=== PATIENT | female | born 1990 | race Caucasian/White ===

== ENCOUNTER → 2020-08-19 15:44 | Outpatient (BNVA) | payer OTHER, SELFPAY | PROVIDERS: PCP Internal Medicine; Visit Provider Obstetrics & Gynecology | DX: Z76.89 Persons encountering health services in other specified circumstances (principal) ==

== ENCOUNTER 2020-08-28 11:48 | Outpatient (REF) | payer OTHER, SELFPAY ==
[2020-08-28 12:24] LABS: COVID-19 Test Negative (Negative)
== END 2020-08-28 11:49 | disposition home or self-care (01) ==
LOC: HO.LAB 11:48
PROVIDERS: Visit Provider Internal Medicine
DX: Z20.828 Contact with and (suspected) exposure to other viral communicable diseases (principal)
CPT/HCPCS: 87635

== ENCOUNTER 2020-09-01 11:06 | Outpatient (REF) | payer OTHER, SELFPAY ==
[2020-09-01 11:27] LABS: COVID-19 Test Negative (Negative)
== END 2020-09-01 11:07 | disposition home or self-care (01) ==
LOC: HO.LAB 11:06
PROVIDERS: Visit Provider Internal Medicine
DX: Z20.828 Contact with and (suspected) exposure to other viral communicable diseases (principal)
CPT/HCPCS: 87635

== ENCOUNTER 2020-09-11 13:05 | Outpatient (REF) | payer OTHER, SELFPAY ==
[2020-09-17 15:27] LABS: HPV mRNA E6/E7 rflx Not Detected (Not Detected)
== END 2020-09-11 13:06 | disposition home or self-care (01) ==
LOC: HO.LAB 13:05
PROVIDERS: PCP Internal Medicine; Referring Provider Internal Medicine; Visit Provider Advanced Practice Midwife
DX: Z01.419 Encounter for gynecological examination (general) (routine) without abnormal findings (principal); B97.7 Papillomavirus as the cause of diseases classified elsewhere; Z79.899 Other long term (current) drug therapy
CPT/HCPCS: 87624; 87625; 88142

== ENCOUNTER 2020-11-24 15:27 | Outpatient (REF) | payer OTHER, SELFPAY ==
[2020-11-24 15:51] LABS: COVID-19 Test Negative (Negative); IDNOW Serial# 55D5AD1C
== END 2020-11-24 15:28 | disposition home or self-care (01) ==
LOC: HO.LAB 15:27
PROVIDERS: Visit Provider Internal Medicine
DX: Z20.822 Contact with and (suspected) exposure to COVID-19 (principal)
CPT/HCPCS: 36415; 87635; C9803

== ENCOUNTER 2021-09-12 13:31 | Outpatient (REF) | payer OTHER, SELFPAY ==
[2021-09-12 14:06] LABS: COVID-19 Test Negative (Negative)
== END 2021-09-12 13:32 | disposition home or self-care (01) ==
LOC: HO.LAB 13:31
PROVIDERS: PCP Internal Medicine; Visit Provider Internal Medicine
DX: Z20.822 Contact with and (suspected) exposure to COVID-19 (principal)
CPT/HCPCS: 36415; 87635

== ENCOUNTER 2021-09-28 | Outpatient (REF) | payer OTHER, SELFPAY | END 2021-09-28 00:01 | disposition home or self-care (01) | LOC: HO.LNP | PROVIDERS: Visit Provider Physician Assistant | DX: J32.9 Chronic sinusitis, unspecified (principal); Z20.822 Contact with and (suspected) exposure to COVID-19 | CPT/HCPCS: U0003; U0005 ==

== ENCOUNTER 2021-09-29 11:28 | Outpatient (REF) | payer OTHER, SELFPAY | END 2021-09-29 11:29 | disposition home or self-care (01) | LOC: HO.LNP 11:28 | PROVIDERS: Visit Provider Physician Assistant | DX: Z13.89 Encounter for screening for other disorder (principal) ==

== ENCOUNTER 2021-10-19 13:09 | Outpatient (REF) | payer OTHER, SELFPAY ==
--- NOTE | ~2021-10-19 | XR_ITS ---
EXAMINATION: XR SHOULDER, RIGHT CLINICAL INFORMATION: Right shoulder pain COMPARISON: None TECHNIQUE: Three views of the right shoulder. FINDINGS: The bones and soft tissues are normal. No fracture. Glenohumeral and acromioclavicular alignment is anatomic with normal joint space. No abnormal soft tissue calcifications. XR/XR shoulder RT min 2V IMPRESSION: No significant bony abnormality of the right shoulder identified.
== END 2021-10-19 13:10 | disposition home or self-care (01) ==
LOC: HO.HOSX 13:09
PROVIDERS: Visit Provider Physician Assistant
DX: S43.001A Unspecified subluxation of right shoulder joint, initial encounter (principal)
CPT/HCPCS: 20610; 73030; J1040

== ENCOUNTER 2022-08-30 14:25 | Outpatient (REF) | payer OTHER, SELFPAY ==
[2022-08-30 15:15] LABS: Hematocrit 38.7 % (37.0-47.0); Hemoglobin 12.8 g/dl (12.0-16.0); Mean Corpuscular HGB Conc 33.1 g/dl (31.0-35.0); Mean Corpuscular Hemoglobin 31.4 pg (27.0-33.0); Mean Corpuscular Volume 95.1 fL (80.0-98.0); Mean Platelet Volume 10.1 fL (9.4-12.3); Platelet Count 359 X10*3/uL (160-400); Red Blood Count 4.07 X10*6/uL (4.20-5.50)
[2022-08-30 15:55] LABS: Anion Gap 14 (12-20); Aspartate Amino Transferase 22 U/L (5-31); Bilirubin Total 0.4 mg/dL (0.0-1.0); Calcium 9.5 mg/dL (8.4-10.2); Carbon Dioxide 23 mmol/L (22-29); Chloride 106 mmol/L (96-108); Cholesterol 181 mg/dL; Potassium 4.6 mmol/L (3.3-5.1); Sodium 138 mmol/L (135-145); Total Protein 6.8 g/dL (6.5-8.0); Triglycerides 62 mg/dL
[2022-08-30 16:04] LABS: Alanine Aminotransferase 19 U/L (0-31); Albumin Level 4.4 g/dL (3.5-5.0); Alkaline Phosphatase 58 U/L (39-117); Blood Urea Nitrogen 16 mg/dL (9-16); Estimated Glomerular Filt Rate > 60; Glucose Fasting 95 mg/dL (60-99); HDL Cholesterol 64 mg/dL; LDL Cholesterol Calculated 105 mg/dl
[2022-08-30 16:08] LABS: TSH reflex Free T4 1.74 uIU/mL (0.32-4.0)
[2022-08-30 16:13] LABS: Folate > 20.0 ng/mL (> or = 4.0); Vitamin B12 489 pg/mL (200-900)
[2022-09-03 16:26] LABS: Vitamin D 25-OH, D2 <4 ng/mL; Vitamin D 25-OH, D3 44 ng/mL; Vitamin D 25-OH, Total 44 ng/mL (30-100)
== END 2022-08-30 14:26 | disposition home or self-care (01) ==
LOC: HO.LAB 14:25
PROVIDERS: PCP Internal Medicine; Visit Provider Nurse Practitioner Family
DX: Z13.220 Encounter for screening for lipoid disorders (principal); Z13.29 Encounter for screening for other suspected endocrine disorder; J45.909 Unspecified asthma, uncomplicated
CPT/HCPCS: 36415; 80053; 80061; 82306; 82607; 82746; 84443; 85027

== ENCOUNTER 2023-06-28 09:48 | Outpatient (REF) | payer OTHER, SELFPAY ==
[2023-06-28 10:10] LABS: MANUAL DIFF FLAG NO
[2023-06-28 10:43] LABS: Basophils Percent Auto 0.3 % (0-2); Eosinophils Absolute Auto 0.1 X10*3/uL (0.0-0.4); Eosinophils Percent Auto 0.8 % (0-4); Hematocrit 39.8 % (37.0-47.0); Imm Gran Abs Auto 0.06 X10*3/uL (0.00-0.03); Imm Gran Pct Auto 0.7 % (0.0-0.4); Lymphocytes Absolute Auto 2.6 X10*3/uL (1.2-4.9); Lymphocytes Percent Auto 30.1 % (20-40); Mean Corpuscular HGB Conc 32.7 g/dl (31.0-35.0); Mean Corpuscular Hemoglobin 31.2 pg (27.0-33.0); Mean Corpuscular Volume 95.4 fL (80.0-98.0); Mean Platelet Volume 10.1 fL (9.4-12.3); Monocytes Absolute Auto 0.6 X10*3/uL (0.1-1.2); Neutrophils Absolute Auto 5.3 x10*3/uL (2.0-8.3); Neutrophils Percent Auto 61.1 % (45-73); Platelet Count 313 X10*3/uL (160-400); Red Blood Count 4.17 X10*6/uL (4.20-5.50); White Blood Count 8.7 X10*3/uL (4.8-10.8)
[2023-06-28 11:29] LABS: Alanine Aminotransferase 12 U/L (0-31); Albumin Level 4.3 g/dL (3.5-5.0); Alkaline Phosphatase 48 U/L (39-117); Anion Gap 10 (12-20); Aspartate Amino Transferase 18 U/L (5-31); Bilirubin Total 0.4 mg/dL (0.0-1.0); Blood Urea Nitrogen 16 mg/dL (9-16); Calcium 9.6 mg/dL (8.4-10.2); Carbon Dioxide 24 mmol/L (22-29); Chloride 108 mmol/L (96-108); Estimated Glomerular Filt Rate > 60; Glucose Random 84 mg/dL (60-115); Potassium 4.4 mmol/L (3.3-5.1); Sodium 138 mmol/L (135-145); Total Protein 7.2 g/dL (6.5-8.0)
[2023-06-28 11:37] LABS: HIV AB/AG Nonreactive (Nonreactive); HIV Num 1 0.05 S/CO (0.00-0.99)
[2023-06-28 11:47] LABS: Free T4 (Free Thyroxine) 0.85 ng/dL (0.71-1.85)
[2023-06-30 20:34] LABS: TS Negative Control Passed; TS Panel A 2; TS Panel B 8; TS Positive Control Passed; TSpotTB Positive (Negative)
== END 2023-06-28 09:49 | disposition home or self-care (01) ==
LOC: HO.LAB 09:48
PROVIDERS: PCP Internal Medicine; Visit Provider Physician Assistant Medical
DX: L71.8 Other rosacea (principal); R61 Generalized hyperhidrosis
CPT/HCPCS: 36415; 80053; 84439; 85025; 86481; 87389

== ENCOUNTER 2023-07-01 16:12 | Outpatient (REF) | payer OTHER, SELFPAY ==
--- NOTE | ~2023-07-01 | XR_ITS ---
EXAMINATION: XR CHEST CLINICAL INFORMATION: Nonspecific reaction to tuberculin skin test. COMPARISON: None available. TECHNIQUE: 2 views of the chest were obtained. FINDINGS: The cardiomediastinal silhouette is normal. There is no focal lung consolidation or pleural effusion. The bony structures and soft tissues are unremarkable. XR/XR chest 2V IMPRESSION: No active cardiopulmonary disease.
== END 2023-07-01 16:13 | disposition home or self-care (01) ==
LOC: HO.XRAY 16:12
PROVIDERS: PCP Internal Medicine; Visit Provider Internal Medicine
DX: R76.11 Nonspecific reaction to tuberculin skin test without active tuberculosis (principal)
CPT/HCPCS: 71046

== ENCOUNTER 2023-07-14 07:52 | Outpatient (AMB) | payer OTHER, SELFPAY ==
--- NOTE | 2023-07-14 07:58 | MHC.OFFVIS ---
Intake Vital Signs 07/14/23 08:00 Height 5 ft 3 in Weight 171 lb 15.369 oz BMI 30.5 BP 98/60 Intake Visit Reasons: Painful intercourse Career Development Specialist Required: No Information Interpreted: non-clinical & clinical Operations Analyst: Operations Analyst Present (Berenice REED) Accompanied by: Self / Same As Patient Allergies cyclobenzaprine [From Flexeril] Allergy (Mild, Verified 07/14/23 08:01) Stomach Upset Is last menstrual period known: Yes Last menstrual period: 07/05/23 HPI HPI Comments History of Present Illness Details Presenting complaining of many years history of superficial external pain during intercourse associated with lack of lubrication after initiation of sexual active. No vulvodynia, no vaginal discharge , no vulvar burning or itching PFSH Medical History (Updated 07/14/23 @ 08:26 by Shaheen Avila MD) Intermittent palpitations Overweight (BMI 25.0-29.9) Rosacea Allergic rhinitis Asthma Seasonal allergies ADHD HPV in female Insomnia Depression Psoriasis Surgical History History of wisdom tooth extraction Family History Mother Lung cancer Cervical cancer Father Prostate cancer Paternal Grandmother Lung cancer Social History Housing: House Alcohol intake: current Alcohol intake frequency: a few times a week Patient Tobacco Use Status: Never used Tobacco e-Cigarette/Vaping Use: Never Used Second Hand Smoke Exposure: No service: No Current occupational status: employed 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 Sexual orientation: Bisexual Gender identity: Female Cognitive needs: No Hearing needs: No Vision needs: Yes (glasses) Female Reproductive History Menstrual Age of Menarche: 10 Date of last menstrual period: 07/05/23 Review of Systems Const All systems reviewed & are unremarkable except as noted in HPI and below Physical Exam General: Yes no CVA tenderness External Female Exam: normal external appearance and normal appearance of the urethra Speculum Exam - Vagina: normal appearance of the vagina, normal palpation, no lesions and no masses Speculum Exam - Cervix: normal appearance of the cervix, normal palpation, no lesions, no masses and nontender Bimanual exam- vagina & uterus: normal bimanual exam, normal palpation, uterine size normal, normal palpation, uterine shape normal, No Cervical tenderness present and non-tender Bimanual Exam- Adnexa, other: normal adnexae Back/Spine/Pelvis Back: no CVA tenderness Assessment & Plan Assessment & Plan (1) Dyspareunia, female: Code(s): N94.10 - Unspecified dyspareunia Plan: GC/CT, BV panel collected. Discussed with patient possible causes of dyspareunia including cervical/vulvar infection, vulvar skin disorders which has been ruled out given the normal pelvic exam, psychological causes and others. Will refer to sexual dysfunction clinic. All questions answered, the patient verbalized understanding and agreed with the plan. Coding Level of Care Code Est Pt Level 3 (98427) Diagnoses Dyspareunia, female N94.10
[2023-07-14 08:00] VITALS: BP 98/60; BMI 30.5
== END 2023-07-14 08:26 | disposition home or self-care (01) ==
PROVIDERS: PCP Internal Medicine; Visit Provider Obstetrics & Gynecology
DX: N94.10 Unspecified dyspareunia (principal)
CPT/HCPCS: 99213

== ENCOUNTER 2023-07-14 07:52 | Outpatient (REF) | payer OTHER, SELFPAY ==
[2023-07-15 03:20] LABS: CT PCR NOT DETECTED (Not Detect.); NG PCR NOT DETECTED (Not Detect.)
[2023-07-15 16:02] LABS: BV Int Neg Control Negative (Negative); BV Int Pos Control Positive (Positive)
== END 2023-07-14 07:53 | disposition home or self-care (01) ==
LOC: HO.LNP 07:52
PROVIDERS: PCP Internal Medicine; Visit Provider Obstetrics & Gynecology
DX: N94.10 Unspecified dyspareunia (principal); Z20.2 Contact with and (suspected) exposure to infections with a predominantly sexual mode of transmission
CPT/HCPCS: 0353U; 87480; 87510; 87660

== ENCOUNTER 2023-07-27 11:31 | Outpatient (AMB) | payer OTHER, SELFPAY ==
[2023-07-27 11:41] VITALS: BP 120/62; PULSE 74; BMI 27.8
--- NOTE | 2023-07-27 11:41 | A.OFFVIS_ITS ---
Intake Vital Signs 07/27/23 11:41 Height 5 ft 3 in Weight 157 lb BMI 27.8 BP 120/62 Pulse 74 Intake Visit Reasons: ref[facility], skin test without active tuberculosis Allergies cyclobenzaprine [From Flexeril] Allergy (Mild, Verified 07/27/23 11:49) Stomach Upset HPI ref.[facility], skin test without active tuberculosis HPI Details She had TB skin test done due to rashes on skin and was found to be positive by [employer]. She says she was HIV negative. She has negative CXR and no cough or fevers. [facility] Medical History Intermittent palpitations Overweight (BMI 25.0-29.9) Rosacea Allergic rhinitis Asthma Seasonal allergies ADHD HPV in female Insomnia Depression Psoriasis Surgical History History of wisdom tooth extraction Family History Mother Lung cancer Cervical cancer Father Prostate cancer Paternal Grandmother Lung cancer Social History Housing: House Alcohol intake: current Alcohol intake frequency: a few times a week Patient Tobacco Use Status: Never used Tobacco e-Cigarette/Vaping Use: Never Used Second Hand Smoke Exposure: No service: No Current occupational status: employed 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 Code(s): R76.11 - Nonspecific reaction to tuberculin skin test without active tuberculosis Plan: Would recheck T spot. If positive six months INH and B6. (2) Rosacea: Code(s): L71.9 - Rosacea, unspecified Orders: Orders T Spot TB 07/27/23 R76.11 - Nonspecific reaction to tuberculin skin test without active tuberculosis Hepatitis C Antibody 07/27/23 R76.11 - Nonspecific reaction to tuberculin skin test without active tuberculosis HIV Ab/Ag 07/27/23 R76.11 - Nonspecific reaction to tuberculin skin test without active tuberculosis Coding Level of Care Code New Pt Level 3 (87997) Diagnoses Positive TB test R76.11 Carmen L71.9
== END 2023-07-27 11:53 | disposition home or self-care (01) ==
PROVIDERS: PCP Internal Medicine; Visit Provider Internal Medicine
DX: R76.11 Nonspecific reaction to tuberculin skin test without active tuberculosis (principal); L71.9 Rosacea, unspecified
CPT/HCPCS: 99203

== ENCOUNTER → 2023-07-27 11:31 | Outpatient (BNVA) | payer OTHER, SELFPAY | PROVIDERS: PCP Internal Medicine; Visit Provider Internal Medicine ==

== ENCOUNTER 2024-01-13 11:33 | Outpatient (AMB) | payer OTHER, SELFPAY ==
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
== END 2024-01-13 12:00 | disposition home or self-care (01) ==
LOC: HO.HOP 11:33
PROVIDERS: PCP Internal Medicine; Visit Provider Clinical Nurse Specialist Psychiatric/Mental Health
DX: F31.81 Bipolar II disorder (principal); F43.21 Adjustment disorder with depressed mood; F90.9 Attention-deficit hyperactivity disorder, unspecified type
CPT/HCPCS: 99214

== ENCOUNTER → 2024-01-13 11:33 | Outpatient (BNVA) | payer OTHER, SELFPAY | PROVIDERS: PCP Internal Medicine; Visit Provider Clinical Nurse Specialist Psychiatric/Mental Health ==

== ENCOUNTER 2024-01-20 12:56 | Outpatient (AMB) | payer OTHER, SELFPAY ==
--- NOTE | 2024-01-20 13:00 | A.OFFPC_ITS ---
Vital Signs 01/20/24 13:03 Height 5 ft 3 in Weight 136 lb 6 oz BMI 24.2 BP 132/70 Blood Pressure Location Lt brachial Position Sitting Pulse 72 Pulse Source Pulse Oximeter Pulse Oximetry (%) 100 Oxygen Delivery Method Room Air Intake Visit Reasons: Physical Exam Intake Note: Patient is here today for a physical. Instrument And Control Technician Required: No Proof Technician Helper: Not Required per policy Accompanied by: Self / Same As Patient Allergies cyclobenzaprine [From Flexeril] Allergy (Mild, Verified 01/20/24 13:31) Stomach Upset Medication List - Last Reconciled 01/20/24 by Doug Tillman MD albuterol sulfate 90 mcg/actuation 1 - 2 puffs PO Q6H PRN benzoyl peroxide 5% (Epsolay) appl topical BEDTIME clonidine HCl 0.1 mg PO BID dextroamphetamine-amphetamine 20 mg (Adderall) 20 mg PO BID fluticasone propionate 50 mcg/actuation 1 spray intranasal DAILY PRN 30 days folic acid 1 mg PO DAILY lamotrigine 100 mg (1/2 x 200 mg) PO BID 30 days loratadine 10 mg PO DAILY montelukast 10 mg PO BEDTIME 90 days multivit with min-folic acid 120 mcg (Adult Multivitamin Gummies) 1 tab PO DAILY naltrexone mg PO olanzapine (Zyprexa) 5 mg PO BEDTIME Tobacco use date assessed: 01/20/24 Dental Screening Dental Screen Date: 01/20/24 Did you have a dental visit in the last 12 months?: No Did you have a dental problem in the last 6 months where you did not have access to dental care?: No Was dental information given to patient?: No HPI Physical Exam HPI Details Patient comes in today for her annual physical examination States that missed her physical back in August 2023 as her father just the day before (from esophageal cancer) Relates that her mother also ended up passing away a couple of months later from complications from her lung cancer States that she is still trying to adjust / cope with recent events but thinks that she is doing okay She has lost a lot of weight over the past few months - notes that she just does not feel hungry and can often go all day with hardly eating anything at all She has reportedly been experiencing increased pain over her neck as well as in her left shoulder lately and would like to request for a referral to physical therapy again She continues to follow up with psychiatry (Shannon Stroud) for her ADHD and other psych issues She also recalls having a positive T spot recently and was referred to and seen by Dr. Hassan who reportedly thinks that her test may be a false positive but she has not heard back from her office as to what she is supposed to do next She denies any headaches or dizziness Denies any chest pains, no SOB No nausea/vomiting, no abdominal pain No change in bowel habits noted She denies any acute urinary symptoms Needs her Loratadine Rx refilled PFSH Medical History (Updated 01/23/24 @ 14:23 by Doug Tillman MD) Intermittent palpitations Overweight (BMI 25.0-29.9) Rosacea Allergic rhinitis Asthma Seasonal allergies ADHD HPV in female Insomnia Depression Psoriasis Surgical History History of wisdom tooth extraction Family History Mother Lung cancer Cervical cancer Father Prostate cancer Paternal Grandmother Lung cancer Social History Housing: House Alcohol intake: current Alcohol intake frequency: a few times a week Patient Tobacco Use Status: Never used Tobacco e-Cigarette/Vaping Use: Never Used Second Hand Smoke Exposure: No service: No Current occupational status: employed 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 1. Little interest or pleasure in doing things: more than half the days 2. Feeling down, depressed, or hopeless: nearly every day 3. Trouble falling or staying asleep, or sleeping too much: nearly every day 4. Feeling tired or having little energy: nearly every day 5. Poor appetite or overeating: nearly every day 6. Feeling bad about yourself - or that you are a failure or have let yourself or your family down: more than half the days 7. Trouble concentrating on things, such as reading the newspaper or watching television: nearly every day 8. Moving or speaking so slowly that other people could have noticed. Or the opposite - being so fidgety or restless that you have been moving around a lot more than usual: more than half the days 9. Thoughts that you would be better off or of hurting yourself in some way: more than half the days Total score: 23 Depression Screening Interpretation: Positive Depression Screening Follow-up: Existing condition and In treatment Depression Screening Done: Yes 85048 - PHQ-9 Billing: Yes Source: Developed by Drs. Malvin Putnam, Flory Hart, Kevin Tucker and colleagues, with an educational vanessa from [employer]. Thrive Questionnaire Date Thrive assessed: 01/20/24 I am a: Patient What is your living situation today?: I have a steady place to live Within the past 12 months, did the food you bought not last and you didn't have the money to get more?: Never true Within the past 12 months, did you worry whether your food would run out before you got money to buy more?: Never true Do you have trouble paying for medicines?: No Do you have trouble getting transportation to medical appointments?: No Do you have trouble paying your heating and electricity bill?: No Do you have trouble taking care of your child, family member or friend?: No Do you have trouble with day-to-day activities such as bathing, preparing meals, shopping, managing finances, etc.?: No Are you currently unemployed and looking for a job?: No Are you interested in more education?: No Currently or been in a relationship where the following occur: no concerns reported THRIVE Score: 0 AUDIT C Alcohol Use Questionnaire (AUDIT-C) 1. How often do you have a drink containing alcohol?: Monthly or less 2. How many drinks containing alcohol do you have on a typical day when you are drinking?: 1 or 2 Total Score: 1 Score Reviewed/Action Taken: Yes TITA-7 AMB Questionnaire TITA-7 Date TITA - 7 assessed: 01/20/24 Feeling nervous, anxious, or on edge: 3 = Nearly every day Not being able to stop or control worryin = Nearly every day Worrying too much about different things: 3 = Nearly every day Trouble relaxin = Nearly every day Being so restless that it is hard to sit still: 3 = Nearly every day Becoming easily annoyed or irritable: 3 = Nearly every day Feeling afraid as if something awful might happen: 3 = Nearly every day Total TITA-7 score (0-4 normal; 5-9 mild; 10-14 moderate; 15-21 severe): 21 Source: Developed by Drs. Malvin Putnam, Flory Hart, Kevin Tucker and colleagues, with an educational vanessa from [employer]. Review of Systems Const Denies chills, Denies fatigue, Denies fever(s), Denies headache(s), Denies malaise, Reports poor appetite and Reports weight loss Eyes Denies blurry vision, Denies change in vision, Denies irritation and Denies itchy eyes ENT Denies dysphagia, Denies dizziness, Denies otalgia, Denies headache(s), Denies nasal congestion, Reports neck pain, Denies odynophagia, Denies sinus pain and Denies sore throat Card Denies chest pain, Denies rapid heart rate, Denies irregular heart rhythm, Denies palpitations and Denies dyspnea Resp Denies chest congestion, Denies cough, Denies dyspnea and Denies wheezing GI Denies abdominal pain, Denies bloating, Denies constipation, Denies dysphagia, Denies heartburn, Denies diarrhea, Denies nausea, Denies odynophagia and Denies vomiting Denies hematuria, Denies urinary frequency, Denies dysuria, Denies urinary incontinence and Denies urinary urgency Musc Denies back pain, Reports arthralgias (over the left shoulder), Denies joint sw elling, Denies muscle weakness and Reports neck pain Skin/Breast Denies breast pain, Denies breast mass, Denies change in pigmentation, Denies lesions, Denies rash and Denies unusual bruising Neuro Denies dizziness, Denies headache(s) and Denies paresthesias Psych Denies anxiety, Reports depression and Denies difficulty concentrating (is on Rx for ADHD) Endo Denies fatigue and Denies palpitations Jacoby/Lymph Denies easy bruising Aller/Immun Denies itchy eyes and Denies wheezing Physical exam (Primary Care) Vital Signs: Last Vital Signs Pulse 72 01/20/24 13:03 BP 132/70 01/20/24 13:03 Pulse Ox 100 01/20/24 13:03 Oxygen Delivery Method Room Air 01/20/24 13:03 BMI result Body Mass Index 24.2 Tobacco/Smoking Status: Tobacco use Status Tobacco use date assessed 01/20/24 01/20/24 13:10 Patient Tobacco Use Status Never used Tobacco 01/20/24 13:00 e-Cigarette/Vaping Use Never Used 01/20/24 13:00 PHQ-9: PHQ-9 Score PHQ-9: Total score 23 01/20/24 13:35 Depression Screening Interpretation: Positive Depression Screening Follow-up: Existing condition and In treatment Thrive Assessment: Date of Thrive Assessment Date Thrive assessed 01/20/24 01/20/24 13:10 Currently or been in a relationship where the following occur: no concerns reported Const General: no acute distress, alert and awake Orientation/consciousness: patient oriented x3 HENMT Head: Yes normocephalic and Yes atraumatic Ears: external ears normal, TM's normal bilaterally and EAC's normal General nose exam: No nasal discharge present Face and sinus: Yes normal facial exam and Yes sinuses nontender Teeth and gingiva: dentition normal Throat: Yes posterior oropharynx normal and Yes tonsils normal (no TP congestion) Eyes Eyelids: Yes eyelids normal Conjunctivae: conjunctivae normal Pupils: Equal, round and reactive pupils present EOM: EOMs intact bilaterally Neck Neck: Yes no lymphadenopathy and Yes supple (although (+) cervical spine tenderness noted on exam) Thyroid: Thyroid normal Resp Auscultation: clear to auscultation bilaterally, no rales and no wheezes Cardio Rate: regular rate Rhythm: regular rhythm Heart sounds: no murmurs GI Palpation (GI): Soft to palpation, nontender and No hepatosplenomegaly present Auscultation: normal bowel sounds General: Yes no CVA tenderness Back/Spine/Pelvis Back: no CVA tenderness Cervical Spine: Cervical spine tenderness Thoracic/Lumbar Spine: thoracic and lumbar spine normal to inspection Skin Lesions: no lesions Rashes: no rashes Neuro General: patient oriented x3, moves all extremities, no focal motor deficits and CN's II-XI intact bilaterally Cranial nerves: Yes Equal, round and reactive pupils present Cognition (Neuro): normal cognition Gait exam (Neuro): Normal gait present Extrem General: Yes no clubbing, cyanosis or edema Left upper extremity: shoulder/upper arm Details: tenderness Location: of the A- C joint and normal ROM Assessment and Plan Assessment & Plan (1) Annual physical exam: Code(s): Z00.00 - Encounter for general adult medical examination without abnormal findings Plan: Check labs (2) Neck pain: Code(s): M54.2 - Cervicalgia Plan: Will send patient for cervical spine x-rays for further evaluation Will also refer her to physical therapy for further evaluation and management (3) Left shoulder pain: Code(s): M25.512 - Pain in left shoulder Qualifiers: Chronicity: unspecified Qualified Code(s): M25.512 - Pain in left shoulder Plan: Will send her for left shoulder x-rays for further evaluation Per request, will refer her as well to physical therapy for further evaluation and management (4) Weight loss, unintentional: Code(s): R63.4 - Abnormal weight loss Plan: Will send her for some labs EUSEBIO to further evaluate her recent significant weight loss Will also refer her to ship captain to help elucidate any potential concerns regarding her recent weight loss, which I feel had a lot to do with her recent grief/anxiety/depression brought about by the loss of both of her parents (5) Asthma: Code(s): J45.909 - Unspecified asthma, uncomplicated Qualifiers: Asthma complication type: uncomplicated Asthma persistence: intermittent Asthma severity: mild Qualified Code(s): J45.20 - Mild intermittent asthma, uncomplicated Plan: Stable Continue Montelukast 10 mg QD and Albuterol HFA 1 to 2 inhalations Q 6 hours PRN (6) Allergic rhinitis: Code(s): J30.9 - Allergic rhinitis, unspecified Qualifiers: Allergic rhinitis seasonality: seasonal Allergic rhinitis trigger: unspecified Qualified Code(s): J30.2 - Other seasonal allergic rhinitis Plan: Continue Fluticasone 50 mcg nasal spray QD PRN and Loratadine 10 mg QD PRN (Rx refilled) (7) Positive TB test: Comment: She has no risk factors such as foreign travel or known exposures. Code(s): R76.11 - Nonspecific reaction to tuberculin skin test without active tuberculosis Plan: She recently tested positive on her T spot but chest x-rays came out negative She was referred to Dr. Hassan for further evaluation and states that Dr. Hassan thinks that her test may have been a false positive but she has not heard back from her office since and does not know what she is supposed to do next Will send her to retest her T spot and advised her to contact Dr. Hassan's office on her own as soon as she can to find out what Dr. Hassan recommends as her next step (8) Rosacea: Code(s): L71.9 - Rosacea, unspecified Plan: Follow up with dermatology (Dr. Brizuela) as scheduled (9) ADHD: Code(s): F90.9 - Attention-deficit hyperactivity disorder, unspecified type Qualifiers: Attention deficit-hyperactivity disorder type: unspecified Qualified Code(s): F90.9 - Attention-deficit hyperactivity disorder, unspecified type Plan: Continue Adderall 20 mg BID and Clonidine 0.1 mg Q HS Follow up with psychiatry as scheduled (10) Insomnia: Code(s): G47.00 - Insomnia, unspecified Qualifiers: Insomnia type: unspecified Qualified Code(s): G47.00 - Insomnia, unspe cified Plan: Sleep hygiene reinforced She has taken Zolpidem 10 mg Q HS PRN in the past but now appears off of it She currently takes Clonidine 0.1 mg Q HS and Olanzapine 5 mg Q HS, both of which help with her sleep (11) Bipolar II disorder, mild, depressed, with anxious distress: Code(s): F31.81 - Bipolar II disorder Plan: Continue Lamotrigine 100 mg BID and Olanzapine 5 mg Q HS Follow up with psychiatry as scheduled - omar Stroud Plan Follow up in 6 months Orders: Orders T Spot TB 01/20/24 Z11.1 - Encounter for screening for respiratory tuberculosis Comprehensive [place]. Panel Fast 01/20/24 E78.00 - Pure hypercholesterolemia, unspecified, R63.4 - Abnormal weight loss, Z00.00 - Encounter for general adult medical examination without abnormal findings Lipid Panel 01/20/24 E78.00 - Pure hypercholesterolemia, unspecified, R63.4 - Abnormal weight loss, Z00.00 - Encounter for general adult medical examination without abnormal findings PT Evaluation and Treatment 01/20/24 M25.512 - Pain in left shoulder, M54.2 - Cervicalgia XR cervical spine 3V 01/20/24 M54.2 - Cervicalgia XR shoulder LT min 2V 01/20/24 M25.512 - Pain in left shoulder Complete Blood Count Auto Diff 01/20/24 D64.9 - Anemia, unspecified, R63.4 - Abnormal weight loss, Z00.00 - Encounter for general adult medical examination without abnormal findings TSH reflex Free T4 01/20/24 E78.00 - Pure hypercholesterolemia, unspecified, R63.4 - Abnormal weight loss, Z00.00 - Encounter for general adult medical examination without abnormal findings UA CC w/rflx Micro + Cult 01/20/24 R30.0 - Dysuria, R63.4 - Abnormal weight loss, Z00.00 - Encounter for general adult medical examination without abnormal findings Vitamin D 25-OH Total 01/20/24 E55.9 - Vitamin D deficiency, unspecified, R63.4 - Abnormal weight loss, Z00.00 - Encounter for general adult medical examination without abnormal findings Referrals Nutrition/Dietitian Referral R63.4 - Abnormal weight loss Medications: Changed From clonidine HCl 0.1 mg PO BID To clonidine HCl 0.1 mg PO BEDTIME From naltrexone PO To naltrexone 25 mg PO DAILY Refilled loratadine 10 mg PO DAILY 90 tabs 2RF J30.2 - Other seasonal allergic rhinitis Coding Level of Care Code Est Pt Prev Care 18-39y([id number]) Diagnoses Annual physical exam Z00.00 Neck pain M54.2 Left shoulder pain, unspecified chronicity M25.512 Chronicity: unspecified Weight loss, unintentional R63.4 Mild intermittent asthma without complication J45.20 Asthma complication type: uncomplicated Asthma persistence: intermittent Asthma severity: mild Seasonal allergic rhinitis, unspecified trigger J30.2 Allergic rhinitis seasonality: seasonal Allergic rhinitis trigger: unspecified Positive TB test R76.11 Rosacea L71.9 Attention deficit hyperactivity disorder (ADHD), unspecified ADHD type F90.9 Attention deficit-hyperactivity disorder type: unspecified Insomnia, unspecified type G47.00 Insomnia type: unspecified Bipolar II disorder, mild, depressed, with anxious distress F31.81
[2024-01-20 13:03] VITALS: BP 132/70; PULSE 72; O2SAT 100; BMI 24.2
== END 2024-01-20 13:53 | disposition home or self-care (01) ==
PROVIDERS: PCP Internal Medicine; Visit Provider Internal Medicine
DX: Z00.00 Encounter for general adult medical examination without abnormal findings (principal); M54.2 Cervicalgia; M25.512 Pain in left shoulder; F31.81 Bipolar II disorder; R63.4 Abnormal weight loss; J45.20 Mild intermittent asthma, uncomplicated; J30.2 Other seasonal allergic rhinitis; R76.11 Nonspecific reaction to tuberculin skin test without active tuberculosis; L71.9 Rosacea, unspecified; F90.9 Attention-deficit hyperactivity disorder, unspecified type; G47.00 Insomnia, unspecified
CPT/HCPCS: 99395

== ENCOUNTER 2024-01-24 08:35 | Outpatient (REF) | payer OTHER, SELFPAY ==
--- NOTE | ~2024-01-24 | XR_ITS ---
EXAMINATION: XR SHOULDER, LEFT CLINICAL INFORMATION: Pain. COMPARISON: Radiographs dated 10/19/2021. TECHNIQUE: AP external rotation, Grashey, scapular Y, and axillary views of the left shoulder. FINDINGS: The bones and soft tissues are normal. No fracture. Glenohumeral and acromioclavicular alignment is anatomic with normal joint space. No abnormal soft tissue calcifications. XR/XR shoulder LT min 2V IMPRESSION: Normal left shoulder.
--- NOTE | ~2024-01-24 | XR_ITS ---
EXAMINATION: XR CERVICAL SPINE CLINICAL INFORMATION: Neck pain. COMPARISON: None available. TECHNIQUE: 4 views of the cervical spine. FINDINGS: Slight reversal of the normal cervical lordosis. Degenerative changes with anterior hypertrophic change and moderate loss of disc space height at C5-C6 and C6-C7. XR/XR cervical spine 3V IMPRESSION: Moderate degenerative disc disease at C5-C6 and C6-C7.
[2024-01-24 08:48] LABS: MANUAL DIFF FLAG NO
[2024-01-24 09:25] LABS: Basophils Percent Auto 0.4 % (0-2); Eosinophils Absolute Auto 0.1 X10*3/uL (0.0-0.4); Eosinophils Percent Auto 1.4 % (0-4); Hemoglobin 13.2 g/dl (12.0-16.0); Imm Gran Abs Auto 0.02 X10*3/uL (0.00-0.03); Imm Gran Pct Auto 0.3 % (0.0-0.4); Lymphocytes Absolute Auto 2.5 X10*3/uL (1.2-4.9); Lymphocytes Percent Auto 34.2 % (20-40); Mean Corpuscular Hemoglobin 31.5 pg (27.0-33.0); Mean Corpuscular Volume 95.5 fL (80.0-98.0); Monocytes Absolute Auto 0.5 X10*3/uL (0.1-1.2); Neutrophils Absolute Auto 4.1 x10*3/uL (2.0-8.3); Neutrophils Percent Auto 56.7 % (45-73); Platelet Count 371 X10*3/uL (160-400); Red Blood Count 4.19 X10*6/uL (4.20-5.50); Red Cell Distribution Width 12.5 % (11.0-16.0); White Blood Count 7.2 X10*3/uL (4.8-10.8)
[2024-01-24 09:28] LABS: Appearance Urine Cloudy; Color Urine Yellow; Glucose Urine UA Negative (Negative); Leukocyte Esterase Urine Trace (Negative); Nitrite Urine Negative (Negative); Specific Gravity - Urine >= 1.030 (1.005-1.025); UMIC TRIGGER UACC YES; Urine Blood Moderate (2+) (Negative); Urine Ketones Trace mg/dL (Negative); Urine Protein Negative (Neg-Trace)
[2024-01-24 09:31] LABS: Bacteria Urine 3+ (None Seen); Hyaline Casts Urine 0-2 /LPF (0-2); WBC Urine 0-5 /HPF (0-5)
[2024-01-24 10:10] LABS: Alanine Aminotransferase 13 U/L (0-31); Albumin Level 4.2 g/dL (3.5-5.0); Alkaline Phosphatase 51 U/L (39-117); Anion Gap 12 (12-20); Aspartate Amino Transferase 18 U/L (5-31); Bilirubin Total 0.4 mg/dL (0.0-1.0); Blood Urea Nitrogen 15 mg/dL (9-16); Calcium 9.6 mg/dL (8.4-10.2); Carbon Dioxide 28 mmol/L (22-29); Chloride 106 mmol/L (96-108); Cholesterol 149 mg/dL (<200); Estimated Glomerular Filt Rate > 60; Glucose Fasting 84 mg/dL (60-99); HDL Cholesterol 49 mg/dL (>40); LDL Cholesterol Calculated 85 mg/dL (<100); Potassium 4.1 mmol/L (3.3-5.1); Sodium 142 mmol/L (135-145); Triglycerides 77 mg/dL (<150)
[2024-01-24 10:15] LABS: TSH reflex Free T4 1.67 uIU/mL (0.32-4.0); Vitamin D 25-OH Total 74.3 ng/mL (>30)
[2024-01-27 07:23] LABS: TS Negative Control Passed; TS Panel A 0; TS Panel B 2; TS Positive Control Passed; TSpotTB Negative (Negative)
== END 2024-01-24 08:36 | disposition home or self-care (01) ==
LOC: HO.XRAY 08:35
PROVIDERS: PCP Internal Medicine; Visit Provider Internal Medicine
DX: M25.512 Pain in left shoulder (principal); M54.2 Cervicalgia; E78.00 Pure hypercholesterolemia, unspecified; R63.4 Abnormal weight loss; D64.9 Anemia, unspecified; E55.9 Vitamin D deficiency, unspecified; Z11.1 Encounter for screening for respiratory tuberculosis; Z00.00 Encounter for general adult medical examination without abnormal findings
CPT/HCPCS: 36415; 72040; 73030; 80053; 80061; 81001; 82306; 84443; 85025; 86481

== ENCOUNTER 2024-02-02 09:38 | Outpatient (AMB) | payer OTHER, SELFPAY ==
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
== END 2024-02-02 10:23 | disposition home or self-care (01) ==
LOC: HO.HOP 09:38
PROVIDERS: PCP Internal Medicine; Visit Provider Clinical Nurse Specialist Psychiatric/Mental Health
DX: F31.81 Bipolar II disorder (principal); F43.21 Adjustment disorder with depressed mood
CPT/HCPCS: 99214

== ENCOUNTER → 2024-02-02 09:38 | Outpatient (BNVA) | payer OTHER, SELFPAY | PROVIDERS: PCP Internal Medicine; Visit Provider Clinical Nurse Specialist Psychiatric/Mental Health ==

== ENCOUNTER 2024-03-02 10:10 | Outpatient (AMB) | payer OTHER, SELFPAY ==
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
== END 2024-03-02 13:30 | disposition home or self-care (01) ==
LOC: HO.HOP 10:10
PROVIDERS: PCP Internal Medicine; Visit Provider Clinical Nurse Specialist Psychiatric/Mental Health
DX: F43.21 Adjustment disorder with depressed mood (principal); F31.81 Bipolar II disorder; F41.9 Anxiety disorder, unspecified
CPT/HCPCS: 99214

== ENCOUNTER → 2024-03-02 10:10 | Outpatient (BNVA) | payer OTHER, SELFPAY | PROVIDERS: PCP Internal Medicine; Visit Provider Clinical Nurse Specialist Psychiatric/Mental Health ==

== ENCOUNTER 2024-03-06 09:27 | Outpatient (AMB) | payer OTHER, SELFPAY ==
--- NOTE | 2024-03-06 09:30 | A.OFFVIS_ITS ---
Intake VS Expanded 03/06/24 09:33 03/07/24 10:53 Height 5 ft 3 in 5 ft 3 in Weight 140 lb 140 lb BMI 24.8 24.8 Intake Visit Reasons: Abnormal Weight Loss Allergies cyclobenzaprine [From Flexeril] Allergy (Mild, Verified 01/20/24 13:31) Stomach Upset HPI Nutrition Presentation Details Pt present for MNT f/u for Abnormal weight loss. Pt was referred by PCP, Dr. Tlilman Pt reports weight fluctuated between 150-160s typically in 07/2023, reached 137 lbs related to lack of appetite/depression. Pt is followed by mental health care provider. Pt reports not tolerating corn/oatmilk /dairy and has been reading labels/ingredients carefully. Pt reports gradually increasing appetite Typical meal: 8:10 am B scrambled eggs, non dairy cheese, Latvian muffin with avocado, coffee with almond milk and coconut milk L salad kits popcorn pressed fruit bars , protein oatmeal dinner: chicken /broccoli, tortellini , water physical activity: --- etoh/smokin----- l FYX-Xlaofnv-Rw.Jeor Equation Height 5 ft 3 in Weight 140 lb Resting Metabolic Rate 1296.40 Calculated Activity Level Mild Activity Calories Needed to Maintain Weight 1782.55 Diagnosis Nutrition problem #1 unintended weight loss As related to (etiology) #1 decreased appetite As evidenced by (sign/symptom) #1 weight loss (unintentional about 30 lbs in 6- 9 months, gradually regaining weight ) Most Recent Diabetes Results: Cholesterol 149 mg/dL (<200) 01/24/24 HDL Cholesterol 49 mg/dL (>40) 01/24/24 Triglycerides 77 mg/dL (<150) 01/24/24 Creatinine 0.76 mg/dL (0.5-1.4) 01/24/24 Blood Urea Nitrogen 15 mg/dL (9-16) 01/24/24 Sodium 142 mmol/L (135-145) 01/24/24 Potassium 4.1 mmol/L (3.3-5.1) 01/24/24 Chloride 106 mmol/L (96-108) 01/24/24 Carbon Dioxide 28 mmol/L (22-29) 01/24/24 Calcium 9.6 mg/dL (8.4-10.2) 01/24/24 AST 18 U/L (5-31) 01/24/24 ALT 13 U/L (0-31) 01/24/24 Total Protein 7.0 g/dL (6.5-8.0) 01/24/24 Albumin 4.2 g/dL (3.5-5.0) 01/24/24 PFSH Medical History (Updated 03/02/24 @ 10:51 by Tasha Stroud APRN) Intermittent palpitations Overweight (BMI 25.0-29.9) Rosacea Allergic rhinitis Asthma Seasonal allergies ADHD HPV in female Insomnia Depression Psoriasis Surgical History History of wisdom tooth extraction Family History Mother Lung cancer Cervical cancer Father Prostate cancer Paternal Grandmother Lung cancer Social History Housing: House Alcohol intake: current Alcohol intake frequency: a few times a week Patient Tobacco Use Status: Never used Tobacco e-Cigarette/Vaping Use: Never Used Second Hand Smoke Exposure: No service: No Current occupational status: employed 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 Sexual orientation: Bisexual Gender identity: Female Cognitive needs: No Hearing needs: No Vision needs: Yes (glasses) Female Reproductive History Menstrual Age of Menarche: 10 Assessment & Plan Assessment & Plan (1) Weight loss, unintentional: Code(s): R63.4 - Abnormal weight loss Plan: Wt: 64 Kg ( 02/2024 ) Est kcal needs as per MSJ: 1700 (40% carb, 30% protein/fat) Est fluid needs as per 25-30 ml/d: 1900 Est prot per day as per 1 g/kg bw: 64 Recommend fiber intake : 8-10 g per day and gradually increase to 25-28 g per day for women and 35-38 g for men or as tolerated Recommend sodium intake per day : less than 2000 mg Educated patient on: ( R = reviewed V = verbalizes understanding N/R = needs review N/A = not applicable * Healthy plate method concept: R * meal planning : R * Physical activity: Benefits a precaution: R V N/R Patient Instructions: work on having 3meals per day and snacks in between as needed Do not skip meals but have a nutritional supplement /see list of quick meal ideas to have /choose from keep hydrated by having juices diluted with water, milk alternatives see 2000 frederick meal plan as reference Coding Level of Care Code Nutr Indiv Intake (93510) Diagnoses Weight loss, unintentional R63.4 Time Spent (min) 30
[2024-03-06 09:33] VITALS: BMI 24.8
[2024-03-08 09:37] VITALS: BMI 24.8
== END 2024-03-06 10:01 | disposition home or self-care (01) ==
PROVIDERS: PCP Internal Medicine; Visit Provider Dietitian, Registered
DX: R63.4 Abnormal weight loss (principal)

== ENCOUNTER → 2024-03-06 09:27 | Outpatient (BNVA) | payer OTHER, SELFPAY | PROVIDERS: PCP Internal Medicine; Visit Provider Dietitian, Registered | DX: R63.4 Abnormal weight loss (principal); Z68.24 Body mass index [BMI] 24.0-24.9, adult; Z71.3 Dietary counseling and surveillance | CPT/HCPCS: 97802 ==

== ENCOUNTER 2024-03-28 09:00 | Outpatient (RCR) | payer OTHER, SELFPAY ==
--- NOTE | 2024-02-10 10:55 | MHC.PT.EP ---
[facility] [place] Office [place] Office [place] Office [address] Aydee Coyle [address] [phone] F: [phone] F: [phone] F: [phone] F: [phone] Physical Therapy Plan of Care Date of Evaluation: 02/10/24 Date of Surgery: Diagnosis: This is a 33 yo female presenting to skilled PT with a script for cervicalgia and L shoulder pain. Assessment: This is a 33 yo female presenting to skilled PT with a script for cervicalgia and L shoulder pain. Patient reporting ongoing cervical pain for many years now (at least 2). The pain has been progressively getting worse and she has since been to see her PCP and had x-rays (DDD mod C5-7), referred to PT. Pain at the c-spine is described as R>L mainly throughout the paraspinals. Symptoms are described as grinding, trigger points at the shoulder blades, achiness, occasional L fingers tingling/numbness. Shoulder pain symptoms are more sharp and located at the anterior GHJ on the L (RHD). She also reports grinding with cervical extension as well as lateral flexion, decreased mobility due to pain at c-spine and shoulder, L shoulder pain with pushing/reaching behind and OH. She has attempted to stretch and exercise (goes to the gym regularly) but the pain is about the same. She has also tried chiropractor and massage, she has also tried PT at [facility] for this in the past but states that she isn't the best at it . She gets SOTO's a few times a week, occasional dizziness/lightheadedness. SOTO's are described as tension related. Pain can keep her up at night, can be at rest and with movement. Assessment reveals pain that ranges from up to a 6/10 at the worst. Patient demos decreased L shoulder and cervical ROM, strength of B shoulder's and c-spine, TTP at L GHJ joint line, B UT's, c-spine paraspinals and impaired posture with forward head and rounded shoulders. Based on functional limitations, impaired QOL and pain tolerance patient is a good candidate for skilled PT 2x/wk for 4wks. 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 Manual therapy to restore motion and function. Therapeutic exercise to improve strength and flexibility. Neuromuscular re-education for posture and balance. Therapeutic activities to return to functional activities of daily living. Electronically signed by: Tamica Hernández PT Please sign and return to therapist. Thank you for your referral.
--- NOTE | 2024-04-27 08:32 | MHC.PT.DC ---
[facility] [place] Office [place] Office [place] Office [address] Aydee Coyle [address] [phone] F: [phone] F: [phone] F: [phone] F: [phone] Physical Therapy Discharge Report Diagnosis: This is a 33 yo female presenting to skilled PT with a script for cervicalgia and L shoulder pain. Date of Surgery: Date of Evaluation: 02/10/24 Date of Discharge: 04/27/24 Treatments to Date: 5 Cancellations to Date: 0 No Shows to Date: 0 Discharge Status: Patient Elected to Stop Recommend MD Follow-up Discharge Summary: Patient came to eval and 4 follow up visits with poor attendance to PT. She was still limited in cervical and shoulder mobility at her last tx session. Per note, she was still getting SOTO's and trouble sleeping. She did not return for 30 days so chart was closed and patient dc'd to HEP to continue on her own. Electronically signed by: Tamica Hernández, PT Please sign and return to therapist. Thank you for your referral.
== END 2024-04-27 08:32 | disposition home or self-care (01) ==
LOC: HO.PTCHIC 09:00
PROVIDERS: PCP Internal Medicine; Visit Provider Internal Medicine
DX: M54.2 Cervicalgia (principal); M25.512 Pain in left shoulder
CPT/HCPCS: 97110; 97140; 97162

== ENCOUNTER 2024-03-30 10:08 | Outpatient (AMB) | payer OTHER, SELFPAY ==
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
== END 2024-03-30 10:45 | disposition home or self-care (01) ==
LOC: HO.HOP 10:08
PROVIDERS: PCP Internal Medicine; Visit Provider Clinical Nurse Specialist Psychiatric/Mental Health
DX: F31.81 Bipolar II disorder (principal); F90.2 Attention-deficit hyperactivity disorder, combined type; F41.9 Anxiety disorder, unspecified
CPT/HCPCS: 99214

== ENCOUNTER → 2024-03-30 10:08 | Outpatient (BNVA) | payer OTHER, SELFPAY | PROVIDERS: PCP Internal Medicine; Visit Provider Clinical Nurse Specialist Psychiatric/Mental Health ==

== ENCOUNTER 2024-06-15 09:43 | Outpatient (AMB) | payer OTHER, SELFPAY ==
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
== END 2024-06-15 10:27 | disposition home or self-care (01) ==
LOC: HO.HOP 09:43
PROVIDERS: PCP Internal Medicine; Visit Provider Clinical Nurse Specialist Psychiatric/Mental Health
DX: F31.81 Bipolar II disorder (principal); F43.20 Adjustment disorder, unspecified; Z63.4 Disappearance and death of family member; F41.1 Generalized anxiety disorder; F41.0 Panic disorder [episodic paroxysmal anxiety]
CPT/HCPCS: 90833; 99214

== ENCOUNTER → 2024-06-15 09:43 | Outpatient (BNVA) | payer OTHER, SELFPAY | PROVIDERS: PCP Internal Medicine; Visit Provider Clinical Nurse Specialist Psychiatric/Mental Health ==

== ENCOUNTER 2024-07-06 09:18 | Outpatient (AMB) | payer OTHER, SELFPAY ==
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
== END 2024-07-06 09:39 | disposition home or self-care (01) ==
LOC: HO.HOP 09:18
PROVIDERS: PCP Internal Medicine; Visit Provider Clinical Nurse Specialist Psychiatric/Mental Health
DX: F41.1 Generalized anxiety disorder (principal); F41.0 Panic disorder [episodic paroxysmal anxiety]; F43.20 Adjustment disorder, unspecified; Z63.4 Disappearance and death of family member; F31.81 Bipolar II disorder
CPT/HCPCS: 99214

== ENCOUNTER → 2024-07-06 09:18 | Outpatient (BNVA) | payer OTHER, SELFPAY | PROVIDERS: PCP Internal Medicine; Visit Provider Clinical Nurse Specialist Psychiatric/Mental Health ==

== ENCOUNTER 2024-07-24 10:47 | Outpatient (AMB) | payer OTHER, SELFPAY ==
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
[2024-07-24 10:50] VITALS: BP 104/60; PULSE 89; O2SAT 98; BMI 25.4
== END 2024-07-24 11:15 | disposition home or self-care (01) ==
PROVIDERS: PCP Internal Medicine; Visit Provider Internal Medicine
DX: M50.90 Cervical disc disorder, unspecified, unspecified cervical region (principal); M54.12 Radiculopathy, cervical region; R63.4 Abnormal weight loss; J45.20 Mild intermittent asthma, uncomplicated; J30.2 Other seasonal allergic rhinitis; R76.11 Nonspecific reaction to tuberculin skin test without active tuberculosis; L71.9 Rosacea, unspecified; F90.2 Attention-deficit hyperactivity disorder, combined type; G47.00 Insomnia, unspecified; F31.81 Bipolar II disorder

== ENCOUNTER → 2024-07-24 10:47 | Outpatient (BNVA) | payer OTHER, SELFPAY | PROVIDERS: PCP Internal Medicine; Visit Provider Internal Medicine | DX: M50.90 Cervical disc disorder, unspecified, unspecified cervical region (principal); M54.12 Radiculopathy, cervical region; R63.4 Abnormal weight loss; Z68.25 Body mass index [BMI] 25.0-25.9, adult; J45.20 Mild intermittent asthma, uncomplicated; J30.2 Other seasonal allergic rhinitis; R76.11 Nonspecific reaction to tuberculin skin test without active tuberculosis; L71.9 Rosacea, unspecified; F90.2 Attention-deficit hyperactivity disorder, combined type; G47.00 Insomnia, unspecified; F31.81 Bipolar II disorder; Z79.899 Other long term (current) drug therapy | CPT/HCPCS: 96127 ==

== ENCOUNTER 2024-08-03 10:03 | Outpatient (AMB) | payer OTHER, SELFPAY ==
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
== END 2024-08-03 10:06 | disposition home or self-care (01) ==
LOC: HO.HOP 10:03
PROVIDERS: PCP Internal Medicine; Visit Provider Clinical Nurse Specialist Psychiatric/Mental Health
DX: F41.1 Generalized anxiety disorder (principal); F41.0 Panic disorder [episodic paroxysmal anxiety]; F31.81 Bipolar II disorder; F90.2 Attention-deficit hyperactivity disorder, combined type
CPT/HCPCS: 99214

== ENCOUNTER → 2024-08-03 10:03 | Outpatient (BNVA) | payer OTHER, SELFPAY | PROVIDERS: PCP Internal Medicine; Visit Provider Clinical Nurse Specialist Psychiatric/Mental Health ==

== ENCOUNTER 2024-09-21 09:59 | Outpatient (AMB) | payer OTHER, SELFPAY ==
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
== END 2024-09-21 10:02 | disposition home or self-care (01) ==
LOC: HO.HOP 09:59
PROVIDERS: PCP Internal Medicine; Visit Provider Clinical Nurse Specialist Psychiatric/Mental Health
DX: F41.1 Generalized anxiety disorder (principal); F41.0 Panic disorder [episodic paroxysmal anxiety]; F43.20 Adjustment disorder, unspecified; Z63.4 Disappearance and death of family member; F31.81 Bipolar II disorder
CPT/HCPCS: 99214

== ENCOUNTER 2024-10-20 14:06 | Emergency (ER) | payer OTHER, SELFPAY ==
--- NOTE | ~2024-10-20 | CT_ITS ---
EXAMINATION: CT CERVICAL SPINE WITHOUT CONTRAST CLINICAL INFORMATION: Neck pain COMPARISON: None available. TECHNIQUE: d CT scan of cervical spine was performed with reconstruction imaging performed at the acquisition workstation This CT examination was performed using dose optimization techniques as appropriate, variously including the following: *Automated exposure control *Adjustment of mA and/or kV according to patient size (this includes techniques or standardized protocols for targeted exams where dose is matched to indication/reason for exam; i.e. extremities or head) *Use of iterative reconstruction technique DLP: 3 4 mGy-cm FINDINGS: Vertebral bodies normal in height and normal alignment. There are mild degenerative disc changes present at the C5-C6 and C6-C7 levels manifested by mild disc space narrowing and endplate osteophytes. Remaining disc levels normal. Facets normal. No fracture Surrounding soft tissues normal. Lung apices normal. CT/CT cervical spine wo IV con IMPRESSION: Mild spondylosis of the cervical spine. Fleischner guidelines were followed. Electronically signed by: Rian Lucas MD 10/20/2024 04:18 PM [facility]
--- NOTE | ~2024-10-20 | MR_ITS ---
EXAMINATION: MR CERVICAL SPINE WITHOUT CONTRAST CLINICAL INFORMATION: Radicular symptoms weakness left upper extremity. Neck pain. COMPARISON: CT cervical spine 10/20/2024. TECHNIQUE: MRI of the cervical spine was obtained using routine sequences without contrast. FINDINGS: Straightening of the normal cervical lordosis is present and may be secondary to positioning during the examination. No paraspinous soft tissue inflammatory changes are visualized. No suspicious marrow abnormalities. Visualized posterior fossa structures are normal in appearance. Normal appearance of the craniocervical junction and cerebellar tonsils. Normal flow related signal intensity noted in the visualized components of the cervical carotid and vertebral artery systems. CT C3: No central or foraminal stenoses. C3-C4: Mild central stenosis secondary to mild posterior broad-based disc-osteophyte complex. C4-C5: Moderate central stenosis secondary to a posterior broad-based disc-osteophyte complex with right paracentral disc echogenicity. Findings partially efface the ventral thecal sac CSF space. C5-C6: Moderate central stenosis secondary to a moderate posterior broad-based disc-osteophyte complex partially effacing the ventral thecal sac CSF space. Mild bilateral foraminal stenoses secondary to intraforaminal component of the disc-osteophyte complex. C6-C7: Moderate left foraminal stenosis. Mild central stenosis. Mild right foraminal stenosis. Findings are secondary to a moderate posterior broad-based disc-osteophyte complex with focal prominence of the left uncovertebral joint component with approximately 50% left foraminal stenosis. C7-T1: No central or foraminal stenoses. The visualized spinal cord demonstrates normal contour and signal intensity. MR/MR cervical spine wo con IMPRESSION: *Multilevel chronic spondylosis of the cervical spine as detailed above. Findings include moderate C6-C7 left foraminal stenosis which may result in left C7 nerve root impingement. Electronically signed by: Mil Pace MD 10/20/2024 11:38 PM [facility]
--- NOTE | ~2024-10-20 | CT_ITS ---
EXAMINATION: CT HEAD WITHOUT CONTRAST CLINICAL INFORMATION: Headache neck pain COMPARISON: None available. TECHNIQUE: Contiguous axial imaging was performed from the skull base to vertex without intravenous administration of contrast. This CT examination was performed using dose optimization techniques as appropriate, variously including the following: *Automated exposure control *Adjustment of mA and/or kV according to patient size (this includes techniques or standardized protocols for targeted exams where dose is matched to indication/reason for exam; i.e. extremities or head) *Use of iterative reconstruction technique DLP: 610 mGy-cm FINDINGS: There is no mass hemorrhage or cerebral edema. No extra-axial fluid collections. Soft tissues and osseous structures normal. Sinuses and mastoid air cells CT/CT head/brain wo IV con IMPRESSION: No acute intracranial pathology. Electronically signed by: Rian Lucas MD 10/20/2024 04:16 PM [facility]
[2024-10-20 14:34] VITALS: BP 156/90; PULSE 119; RESP 20; TEMP 37; O2SAT 100; BMI 24.2
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
[2024-10-20 15:07] LABS: MANUAL DIFF FLAG NO
[2024-10-20 15:09] LABS: Basophils Absolute Auto 0.1 X10*3/uL (0.0-0.2); Basophils Percent Auto 0.5 % (0-2); Eosinophils Absolute Auto 0.2 X10*3/uL (0.0-0.4); Eosinophils Percent Auto 1.7 % (0-4); Hematocrit 38.4 % (37.0-47.0); Imm Gran Abs Auto 0.03 X10*3/uL (0.00-0.03); Imm Gran Pct Auto 0.3 % (0.0-0.4); Lymphocytes Percent Auto 26.4 % (20-40); Mean Corpuscular HGB Conc 33.9 g/dl (31.0-35.0); Mean Corpuscular Hemoglobin 32.3 pg (27.0-33.0); Mean Corpuscular Volume 95.5 fL (80.0-98.0); Mean Platelet Volume 9.4 fL (9.4-12.3); Monocytes Absolute Auto 0.9 X10*3/uL (0.1-1.2); Monocytes Percent Auto 7.7 % (2-11); Neutrophils Absolute Auto 7.1 x10*3/uL (2.0-8.3); Neutrophils Percent Auto 63.4 % (45-73); Platelet Count 337 X10*3/uL (160-400); Red Blood Count 4.02 X10*6/uL (4.20-5.50); Red Cell Distribution Width 12.5 % (11.0-16.0); White Blood Count 11.2 X10*3/uL (4.8-10.8)
[2024-10-20 15:24] LABS: Anion Gap 12 (12-20)
[2024-10-20 15:26] LABS: Albumin Level 4.3 g/dL (3.5-5.0); Aspartate Amino Transferase 23 U/L (5-31); Bilirubin Direct 0.1 mg/dL (0.0-0.5); Bilirubin Total 0.3 mg/dL (0.0-1.0); Blood Urea Nitrogen 21 mg/dL (9-16); C Reactive Protein 0.13 mg/dL (< or = 0.50); Calcium 9.5 mg/dL (8.4-10.2); Carbon Dioxide 24 mmol/L (22-29); Chloride 106 mmol/L (96-108); Estimated Glomerular Filt Rate > 60; Glucose Random 85 mg/dL (60-115); Potassium 3.9 mmol/L (3.3-5.1); Sodium 138 mmol/L (135-145); Total Protein 6.9 g/dL (6.5-8.0)
[2024-10-20 15:41] LABS: Alanine Aminotransferase 17 U/L (0-31); Alkaline Phosphatase 49 U/L (39-117)
[2024-10-20 15:50] LABS: Erythrocyte Sedimentation Rate 5 MM/HR (0-20)
--- NOTE | 2024-10-20 17:31 | PC.NURSE ---
patient a&ox3, c/o 06/16 pain, pt to have orthostats done, labs previously drawn, pt awaiting provider evaluation
[2024-10-20 17:37] VITALS: BP 129/81; BP 143/83; PULSE 88; PULSE 89
[2024-10-20 17:38] VITALS: BP 124/92; PULSE 106
[2024-10-20] MEDS: Ketorolac Tromethamine 15 MG/ML VIAL IVPUSH (18:57)
[2024-10-20] MEDS: diazePAM 10 MG/2 ML CARTRIDGE 5 MG IVPUSH (19:30)
[2024-10-20 20:45] VITALS: BP 123/83; PULSE 75; RESP 16; TEMP 37.2; O2SAT 100
[2024-10-20 22:07] VITALS: BP 120/76; PULSE 78; RESP 16; TEMP 37.2; O2SAT 100
== END 2024-10-20 22:08 | disposition home or self-care (01) ==
PROVIDERS: Physician Assistant Medical; Emergency Provider Emergency Medicine; PCP Internal Medicine
DX: M50.123 Cervical disc disorder at C6-C7 level with radiculopathy (principal); M48.02 Spinal stenosis, cervical region
CPT/HCPCS: 36415; 70450; 72125; 72141; 80048; 80076; 85025; 85652; 86140; 96374; 96375; 99284; 99285; J1885; J3360

== ENCOUNTER 2024-10-29 11:22 | Outpatient (AMB) | payer OTHER, SELFPAY ==
--- NOTE | 2024-10-29 11:51 | AM.OFFWIN_ITS ---
Intake Vital Signs 10/29/24 11:58 Weight 154 lb BP 108/70 Blood Pressure Location Rt brachial Position Sitting Pulse 90 Pulse Source Pulse Oximeter Temp 98.2 F Temp Source Oral Pulse Oximetry (%) 99 Oxygen Delivery Method Room Air Intake Visit Reasons: EP Coughing up thick mucus Intake Note: Patient here for thick mucus, congestion for about 1 week. Patient Tobacco Use Status: Never used Tobacco Allergies cyclobenzaprine [From Flexeril] Allergy (Mild, Verified 10/29/24 11:59) Stomach Upset Do you need a note to return to daycare/school/sports/work: No HPI HPI Comments History of Present Illness Details History The patient is a 34-year-old female presenting with symptoms suggestive of a respiratory tract infection. She initiated a steroid taper last week for cervical spine stenosis. Post initiation of the taper, the patient developed a sore throat followed by rhinorrhea, progressing to severe congestion 3 days ago. She describes the mucus as thick and worsening, reminiscent of a prior episode of bronchitis. Despite regular use of Flonase, pseudoephedrine, Mucinex, lozenges, and Vicks Vaporub, her symptoms have not improved. The patient experiences some dyspnea on effort but denies any recent use of her inhaler. No recent fevers have been documented, with a maximum temperature of 99?F noted. The patient also reports absence of significant ear or sinus pain currently, although facial discomfort was present last week. The patient has a history of asthma during childhood, which she notes she has outgrown. Further, there is a concern regarding antibiotic use due to her father's history with Clostridioides difficile, although there are no recent antibiotic uses in the past 30 days. 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 Physical Exam General: Cooperative, healthy appearing, comfortable and no acute distress Orientation/consciousness: Patient oriented x3 Limitations: No limitations Head: Normal to inspection Ears: Hearing grossly normal bilaterally, external ears normal and TM's normal bilaterally Nose: Normal external nose present, Normal nares present and No nasal discharge present Face and sinus: Normal facial exam and Yes sinuses nontender Mouth: Normal oral and palatal mucosa present and moist mucous membranes Throat: Yes tonsils normal, Yes uvula midline. Posterior oropharynx erythema Eyes: Appearance normal, both eyes and all related structures Neck: Normal visual inspection Respiratory: Clear to auscultation bilaterally. Normal respiratory effort, able to speak in complete sentences, Actively coughing, no respiratory distress, not tachypneic, no tripod positioning and no use of accessory muscles Cardiovascular: Regular rate and rhythm. Normal S1 and S2 Skin: No rashes or lesions noted Neuro: Patient oriented x3 Extremities: Normal to inspection and Yes no clubbing, cyanosis or edema PFSH Medical History Intermittent palpitations Overweight (BMI 25.0-29.9) Rosacea Allergic rhinitis Asthma Seasonal allergies ADHD HPV in female Insomnia Depression Psoriasis Surgical History History of wisdom tooth extraction Family History Mother Lung cancer Cervical cancer Father Prostate cancer Paternal Grandmother Lung cancer Social History Housing: House Alcohol intake: current Alcohol intake frequency: a few times a week Patient Tobacco Use Status: Never used Tobacco e-Cigarette/Vaping Use: Never Used Second Hand Smoke Exposure: No service: No Current occupational status: employed 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 Sexual orientation: Bisexual Gender identity: Female Cognitive needs: No Hearing needs: No Vision needs: Yes (glasses) Female Reproductive History Menstrual Age of Menarche: 10 Review of Systems Const All systems reviewed & are unremarkable except as noted in HPI and below Physical Exam Vital Signs: Last Vital Signs Temp 98.2 F 10/29/24 11:58 Pulse 90 10/29/24 11:58 BP 108/70 10/29/24 11:58 Pulse Ox 99 10/29/24 11:58 Oxygen Delivery Method Room Air 10/29/24 11:58 Assessment & Plan Assessment & Plan (1) Atypical pneumonia: Code(s): J18.9 - Pneumonia, unspecified organism Plan: Plan - Administer azithromycin Z-Alfonzo for treatment of atypical pneumonia, leveraging its anti-inflammatory properties. - Perform diagnostic testing for influenza, COVID-19, and RSV due to occupational exposure. - Prescribe Tessalon Perles for mitigating cough, primarily for nighttime symptomatic relief. - No current necessity for systemic corticosteroids or inhaler, pending symptoms controlled with current management. - No need for further imaging such as chest X-ray at this time. - Monitor results from administered tests and contact with results. - Education provided regarding negligible risk of C. difficile infection from current prescribed antibiotic regimen. Patient was informed and verbally consented to the use of an ambient scribe for clinic note documentation during this visit Orders: Orders SARS-CoV2/FLU/RSV Today J06.9 - Acute upper respiratory infection, unspecified Medications: New benzonatate 200 mg PO TID PRN 14 caps 0RF cough azithromycin For 250 mg dose pack: take 500 mg today (day 1), then 250 mg for 4 days (days 2-5) PO 6 tabs 0RF Coding Level of Care Code Est Pt Level 3 (12566) Diagnoses Atypical pneumonia J18.9
[2024-10-29 11:58] VITALS: BP 108/70; PULSE 90; TEMP 36.8; O2SAT 99
== END 2024-10-29 12:39 | disposition home or self-care (01) ==
PROVIDERS: PCP Internal Medicine; Visit Provider Physician Assistant
DX: J18.9 Pneumonia, unspecified organism (principal)

== ENCOUNTER 2024-10-29 11:22 | Outpatient (REF) | payer OTHER, SELFPAY ==
[2024-10-29 16:48] LABS: Influenza A PCR NEGATIVE (Negative); Influenza B PCR NEGATIVE (Negative); Resp Syncy Virus RNA Qual PCR NEGATIVE (Negative); SARS COV2 PCR INHOUSE NEGATIVE (Negative)
== END 2024-10-29 11:23 | disposition home or self-care (01) ==
LOC: HO.LAB 11:22
PROVIDERS: Physician Assistant; PCP Internal Medicine
DX: J06.9 Acute upper respiratory infection, unspecified (principal)
CPT/HCPCS: 0241U

== ENCOUNTER 2024-11-02 10:31 | Outpatient (AMB) | payer OTHER, SELFPAY ==
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
== END 2024-11-02 12:08 | disposition home or self-care (01) ==
PROVIDERS: PCP Internal Medicine; Referring Provider Internal Medicine; Visit Provider Physician Assistant
DX: M54.12 Radiculopathy, cervical region (principal)
CPT/HCPCS: 99204

== ENCOUNTER 2024-11-22 09:12 | Outpatient (AMB) | payer OTHER, SELFPAY ==
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
[2024-11-22 09:30] VITALS: BP 122/63; PULSE 83; O2SAT 97; BMI 25.9
== END 2024-11-22 09:57 | disposition home or self-care (01) ==
PROVIDERS: PCP Internal Medicine; Referring Provider Physician Assistant; Visit Provider Anesthesiology
DX: M47.812 Spondylosis without myelopathy or radiculopathy, cervical region (principal); M48.02 Spinal stenosis, cervical region; G89.4 Chronic pain syndrome; M54.9 Dorsalgia, unspecified
CPT/HCPCS: 99204

== ENCOUNTER 2024-12-14 11:34 | Outpatient (AMB) | payer OTHER, SELFPAY ==
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
--- OUTSIDE RECORDS SUMMARY | 2024-12-14 12:36 | XMS_ITS | Clinical Summary ---
Author Organization [facility] Address [address] [place] [address] Care Team Providers Care Brick Catcher Name Role Phone Unknown, Primary Care Provider Unavailabl e Social History Tobacco Use Types Packs/Day Years Used Date Smoking Tobacco: Never Assessed Sex and Gender Information Value Date Recorded Sex Assigned at Not on file Gender Identity Not on file Sexual Orientation Not on file Job Start Date Occupation Industry Not on file Not on file Not on file Plan of Treatment Health Maintenance Due Date Last Done Comments Hepatitis B Vaccines (1 of 3 - 3-dose series) 1988 Hepatitis C Screening 1988 COVID-19 Vaccine (#1) 1988 Depression Screening 2000 Preventative Health Evaluation 02/27/2006 DTap / Tdap / Td (1 - Tdap) 02/27/2007 Cervical Cancer Screening (P ap Smear) 02/27/2009 Influenza Vaccine (#1) 2024 Pneumococcal Vaccine Aged Out No long er eligible based on patient's age to complete this topic RSV Ped < 20 months Aged Out No longe r eligible based on patient's age to complete this topic Care Teams Brick Catcher Relationship Specialty Start Date End Date Unknown, PCP - General 06/18/21
== END 2024-12-14 12:00 | disposition home or self-care (01) ==
LOC: HO.HOP 11:34
PROVIDERS: PCP Internal Medicine; Visit Provider Clinical Nurse Specialist Psychiatric/Mental Health
DX: F31.81 Bipolar II disorder (principal); F41.1 Generalized anxiety disorder; F41.0 Panic disorder [episodic paroxysmal anxiety]; G89.4 Chronic pain syndrome
CPT/HCPCS: 99214

== ENCOUNTER 2025-01-24 09:03 | Outpatient (AMB) | payer OTHER, SELFPAY ==
[2025-01-24 09:10] VITALS: BP 110/68; PULSE 85; O2SAT 97; BMI 27.5
--- NOTE | 2025-01-24 09:10 | A.OFFPC_ITS ---
Vital Signs 01/24/25 09:10 Height 5 ft 3 in Weight 155 lb 8 oz BMI 27.5 BP 110/68 Blood Pressure Location Lt brachial Position Sitting Pulse 85 Pulse Source Pulse Oximeter Pulse Oximetry (%) 97 Oxygen Delivery Method Room Air Intake Visit Reasons: Annual Exam Care Team Coordinator Scheduler Required: No Accompanied by: Self / Same As Patient Allergies corn Allergy (Severe, Verified 01/24/25 09:27) stomach pain lactose Allergy (Severe, Verified 01/24/25 09:27) upset stomach cyclobenzaprine [From Flexeril] Allergy (Mild, Verified 01/24/25 09:27) Stomach Upset Medication List - Last Reconciled 01/24/25 by Doug Tillman MD albuterol sulfate 90 mcg/actuation 1 - 2 puffs PO Q6H PRN benzonatate 200 mg PO TID PRN benzoyl peroxide 5% (Epsolay) appl topical BEDTIME clonidine HCl 0.1 mg PO BID PRN 90 days dextroamphetamine-amphetamine 20 mg (Adderall) 20 mg PO BID fluticasone propionate 50 mcg/actuation 1 spray intranasal DAILY PRN 30 days lamotrigine 100 mg (1/2 x 200 mg) PO BID 90 days loratadine 10 mg PO DAILY montelukast 10 mg PO BEDTIME 90 days multivit with min-folic acid 120 mcg (Adult Multivitamin Gummies) 1 tab PO DAILY naltrexone 25 mg (1/2 x 50 mg) PO DAILY sertraline (Zoloft) 50 mg orally Take 1 tab daily- take one with food Tobacco use date assessed: 01/24/25 Dental Screening Dental Screen Date: 01/24/25 HPI Annual Exam HPI Details Patient comes in today for her annual physical examination States that she feels okay She is still struggling with chronic neck pains and is now scheduled for a trial of injection treatment with pain management in about 3 weeks She was seen by neurosurgery for her neck pain back in October 2024 and was advised to see pain management as she did not really have any surgical indications at the time Adds that she has been experiencing increased nasal/sinus congestion, sore throat and headaches for the past week and a half now Reports experiencing on and off low-grade fever last weekend of up to 99.8?F States that she has been coughing up thick, yellowish-green phlegm lately She denies any dizziness Denies any chest pains, no increased shortness of breath No nausea/vomiting, no abdominal pain No change in bowel habits noted She denies any acute urinary symptoms Needs her Loratadine Rx refilled today Patient states that she is up-to-date with her annual gynecology exam and pap smear She continues to follow up regularly with Shannon Stroud at our outpatient psychiatric clinic for follow-up and continuing management of her psychiatric issues [facility] Medical History Intermittent palpitations Overweight (BMI 25.0-29.9) Rosacea Allergic rhinitis Asthma Seasonal allergies ADHD HPV in female Insomnia Depression Psoriasis Surgical History History of wisdom tooth extraction Family History Mother Lung cancer Cervical cancer Father Prostate cancer Paternal Grandmother Lung cancer Social History Housing: House Alcohol intake: current Alcohol intake frequency: a few times a week Patient Tobacco Use Status: Never used Tobacco e-Cigarette/Vaping Use: Never Used Second Hand Smoke Exposure: No service: No Current occupational status: employed 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 1. Little interest or pleasure in doing things: more than half the days 2. Feeling down, depressed, or hopeless: several days 3. Trouble falling or staying asleep, or sleeping too much: nearly every day 4. Feeling tired or having little energy: nearly every day 5. Poor appetite or overeating: more than half the days 6. Feeling bad about yourself - or that you are a failure or have let yourself or your family down: several days 7. Trouble concentrating on things, such as reading the newspaper or watching television: several days 8. Moving or speaking so slowly that other people could have noticed. Or the opposite - being so fidgety or restless that you have been moving around a lot more than usual: several days 9. Thoughts that you would be better off or of hurting yourself in some way: not at all Total score: 14 Depression Screening Interpretation: Positive Depression Screening Follow-up: Existing condition and In treatment Depression Screening Done: Yes 06329 - PHQ-9 Billing: Yes Source: Developed by Drs. Malvin Putnam, Flory Hart, Kevin Tucker and colleagues, with an educational vanessa from [employer]. Thrive Questionnaire Date Thrive assessed: 01/24/25 I am a: Patient What is your living situation today?: I have a steady place to live Within the past 12 months, did the food you bought not last and you didn't have the money to get more?: Never true Within the past 12 months, did you worry whether your food would run out before you got money to buy more?: Never true Do you have trouble paying for medicines?: No Do you have trouble getting transportation to medical appointments?: No Do you have trouble paying your heating and electricity bill?: No Do you have trouble taking care of your child, family member or friend?: No Do you have trouble with day-to-day activities such as bathing, preparing meals, shopping, managing finances, etc.?: No Are you currently unemployed and looking for a job?: No Are you interested in more education?: No Please select the resources that you would like help with: None Currently or been in a relationship where the following occur: No concerns reported THRIVE Score: 0 AUDIT C Alcohol Use Questionnaire (AUDIT-C) 1. How often do you have a drink containing alcohol?: 2-3 times a week 2. How many drinks containing alcohol do you have on a typical day when you are drinking?: 3 or 4 3. How often do you have six or more drinks on one occasion?: Less than monthly Total Score: 5 Score Reviewed/Action Taken: Yes TITA-7 AMB Questionnaire TITA-7 Date TITA - 7 assessed: 01/24/25 Feeling nervous, anxious, or on edge: 1 = Several days Not being able to stop or control worryin = Several days Worrying too much about different things: 1 = Several days Trouble relaxin = Several days Being so restless that it is hard to sit still: 1 = Several days Becoming easily annoyed or irritable: 2 = More than half the days Feeling afraid as if something awful might happen: 1 = Several days Total TITA-7 score (0-4 normal; 5-9 mild; 10-14 moderate; 15-21 severe): 8 Source: Developed by Drs. Malvin Putnam, Flory Hart, Kevin Tucker and colleagues, with an educational vanessa from [employer]. Review of Systems Const Denies chills, Reports fatigue, Denies fever(s) (had low-grade fever last weekend), Reports headache(s) (on and off) and Denies malaise Eyes Denies blurry vision, Denies change in vision, Denies irritation and Denies itchy eyes ENT Denies dysphagia, Denies dizziness, Denies otalgia, Reports headache(s) (on and off), Reports nasal congestion, Reports neck pain (chronic), Denies odynophagia, Reports sinus pain, Reports sinus pressure and Reports sore throat (mild) Card Denies chest pain, Denies rapid heart rate, Denies irregular heart rhythm, Denies palpitations and Denies dyspnea Resp Denies chest congestion, Denies cough, Denies dyspnea and Denies wheezing GI Denies abdominal pain, Denies bloating, Denies constipation, Denies dysphagia, Denies heartburn, Denies diarrhea, Denies nausea, Denies odynophagia and Denies vomiting Denies hematuria, Denies urinary frequency, Denies dysuria, Denies urinary incontinence and Denies urinary urgency Musc Denies back pain, Denies arthralgias, Denies joint swelling, Denies muscle weakness, Reports neck pain (chronic) and Reports radiating pain into limb (down both upper extremities) Skin/Breast Denies breast pain, Denies breast mass, Denies change in pigmentation, Denies lesions, Denies rash and Denies unusual bruising Neuro Denies dizziness, Reports headache(s) (on and off) and Denies paresthesias Psych Denies anxiety, Reports depression (controlled on Rx) and Denies difficulty concentrating (controlled on Rx) Endo Reports fatigue and Denies palpitations Jacoby/Lymph Denies easy bruising Aller/Immun Denies itchy eyes and Denies wheezing Physical exam (Primary Care) Vital Signs: Last Vital Signs Pulse 85 03/20/25 09:10 BP 110/68 01/24/25 09:10 Pulse Ox 97 01/24/25 09:10 Oxygen Delivery Method Room Air 01/24/25 09:10 BMI result Body Mass Index 27.5 Tobacco/Smoking Status: Tobacco use Status Tobacco use date assessed 01/24/25 01/24/25 09:20 Patient Tobacco Use Status Never used Tobacco 01/24/25 09:20 e-Cigarette/Vaping Use Never Used 01/24/25 09:20 PHQ-9: PHQ-9 Score PHQ-9: Total score 14 01/24/25 09:23 Depression Screening Interpretation: Positive Depression Screening Follow-up: Existing condition and In treatment Thrive Assessment: Date of Thrive Assessment Date Thrive assessed 01/24/25 01/24/25 09:20 Currently or been in a relationship where the following occur: No concerns reported Const General: no acute distress, alert and awake Orientation/consciousness: patient oriented x3 HENMT Head: Yes normocephalic and Yes atraumatic Ears: external ears normal, TM's normal bilaterally and EAC's normal General nose exam: No nasal discharge present Face and sinus: Yes normal facial exam and Yes sinus tenderness (bilaterally) Teeth and gingiva: dentition normal Throat: Yes posterior oropharynx normal and Yes tonsils normal (no TP congestion) Eyes Eyelids: Yes eyelids normal Conjunctivae: conjunctivae normal Pupils: Equal, round and reactive pupils present EOM: EOMs intact bilaterally Neck Neck: No lymphadenopathy and Yes tender Thyroid: Thyroid normal Resp Auscultation: clear to auscultation bilaterally, no rales and no wheezes Cardio Rate: regular rate Rhythm: regular rhythm Heart sounds: no murmurs GI Palpation (GI): Soft to palpation, nontender and No hepatosplenomegaly present Auscultation: normal bowel sounds General: Yes no CVA tenderness Back/Spine/Pelvis Back: no CVA tenderness Cervical Spine: Cervical spine tenderness (chronic) Thoracic/Lumbar Spine: No lumbar spinal tenderness Skin Lesions: no lesions Rashes: no rashes Neuro General: patient oriented x3, moves all extremities, no focal motor deficits and CN's II-XI intact bilaterally Cranial nerves: Yes Equal, round and reactive pupils present Cognition (Neuro): normal cognition Gait exam (Neuro): Normal gait present Extrem General: Yes no clubbing, cyanosis or edema Coding Level of Care Code Est Pt Prev Care 18-39y(73384) Diagnoses Annual physical exam Z00.00 Cervical disc disease M50.90 Left cervical radiculopathy M54.12 Mild intermittent asthma without complication J45.20 Asthma severity: mild Asthma persistence: intermittent Asthma complication type: uncomplicated Seasonal allergic rhinitis, unspecified trigger J30.2 Allergic rhinitis trigger: unspecified Allergic rhinitis seasonality: seasonal Acute non-recurrent sinusitis, unspecified location J01.90 Sinusitis location: unspecified location Chronicity: acute Recurrence: non-recurrent Rosacea L71.9 Attention deficit hyperactivity disorder (ADHD), combined type F90.2 Attention deficit-hyperactivity disorder type: combined inattentive- hyperactive Insomnia, unspecified type G47.00 Insomnia type: unspecified Bipolar II disorder, mild, depressed, with anxious distress F31.81 Overweight (BMI 25.0-29.9) E66.3 Additional Codes PHQ-9 - 97644 - PHQ-9 Billing: Yes ([id number]) Assessment & Plan Assessment & Plan (1) Annual physical exam: Code(s): Z00.00 - Encounter for general adult medical examination without abnormal findings Category: Medical Plan: Check labs She is up-to-date with her yearly gynecology exam and pap smear and has no other cancer screenings due at this time (2) Cervical disc disease: Code(s): M50.90 - Cervical disc disorder, unspecified, unspecified cervical region Category: Medical Plan: Patient continues to struggle with chronic neck pains and she is now scheduled for a trial of injection treatment with pain management in about 3 weeks (3) Left cervical radiculopathy: Code(s): M54.12 - Radiculopathy, cervical region Category: Medical Plan: Cervical spine MRI done back in October 2024 revealed (+) multilevel chronic spondylosis of the cervical spine and included a moderate C6-C7 left foraminal stenosis which may result in left C7 nerve root impingement She was seen by neurosurgery for her neck pain back in October 2024 and was advised to see pain management as she did not really have any surgical indications at the time (4) Asthma: Code(s): J45.909 - Unspecified asthma, uncomplicated Category: Medical Qualifiers: Asthma severity: mild Asthma persistence: intermittent Asthma complication type: uncomplicated Qualified Code(s): J45.20 - Mild intermittent asthma, uncomplicated Plan: Controlled Continue Montelukast 10 mg QD and Albuterol HFA 1 to 2 inhalations Q 6 hours PRN (5) Allergic rhinitis: Code(s): J30.9 - Allergic rhinitis, unspecified Category: Medical Qualifiers: Allergic rhinitis trigger: unspecified Allergic rhinitis seasonality: seasonal Qualified Code(s): J30.2 - Other seasonal allergic rhinitis Plan: Continue Fluticasone 50 mcg nasal spray QD PRN and Loratadine 10 mg QD PRN (Rx refilled) (6) Sinusitis: Code(s): J32.9 - Chronic sinusitis, unspecified Category: Medical Qualifiers: Sinusitis location: unspecified location Chronicity: acute Recurrence: non-recurrent Qualified Code(s): J01.90 - Acute sinusitis, unspecified Plan: Will go ahead and start patient empirically on Augmentin 875 mg BID x 7 days (7) Rosacea: Code(s): L71.9 - Rosacea, unspecified Category: Medical Plan: Follow up with dermatology (Dr. Brizuela) as scheduled (8) ADHD: Code(s): F90.9 - Attention-deficit hyperactivity disorder, unspecified type Category: Medical Qualifiers: Attention deficit-hyperactivity disorder type: combined inattentive- hyperactive Qualified Code(s): F90.2 - Attention-deficit hyperactivity disorder, combined type Plan: Continue Adderall 20 mg BID and Clonidine 0.1 mg BID Follow up with psychiatry as scheduled (9) Insomnia: Code(s): G47.00 - Insomnia, unspecified Category: Medical Qualifiers: Insomnia type: unspecified Qualified Code(s): G47.00 - Insomnia, unspecified Plan: Sleep hygiene reinforced She has taken Zolpidem 10 mg Q HS PRN in the past but is now off of it She currently takes Clonidine 0.1 mg BID, which she states helps with her sleep (10) Bipolar II disorder, mild, depressed, with anxious distress: Code(s): F31.81 - Bipolar II disorder Category: Medical Plan: Continue Lamotrigine 100 mg BID and Sertraline 50 mg QD; she was taken off Olanzapine last year Follow up with psychiatry as scheduled - sees Shannon Stroud (11) Overweight (BMI 25.0-29.9): Code(s): E66.3 - Overweight Category: Medical Plan: Reinforced diet/exercise as tolerated/lose weight Plan Follow up in 6 months Orders: Orders Complete Blood Count Auto Diff 01/24/25 D64.9 - Anemia, unspecified, Z00.00 - Encounter for general adult medical examination without abnormal findings TSH reflex Free T4 01/24/25 E78.00 - Pure hypercholesterolemia, unspecified, Z00.00 - Encounter for general adult medical examination without abnormal findings Vitamin D 25-OH Total 01/24/25 E55.9 - Vitamin D deficiency, unspecified, Z00.00 - Encounter for general adult medical examination without abnormal findings Lipid Panel 01/24/25 E78.00 - Pure hypercholesterolemia, unspecified, Z00.00 - Encounter for general adult medical examination without abnormal findings Comprehensive [place]. Panel Fast 01/24/25 E78.00 - Pure hypercholesterolemia, unspecified, Z00.00 - Encounter for general adult medical examination without abnormal findings UA CC w/rflx Micro + Cult 01/24/25 R30.0 - Dysuria, Z00.00 - Encounter for general adult medical examination without abnormal findings Medications: New amoxicillin-pot clavulanate 875-125 mg 1 tab PO BID 14 tabs 0RF 7 days Refilled loratadine 10 mg PO DAILY 90 tabs 2RF J30.2 - Other seasonal allergic rhinitis
== END 2025-01-24 09:42 | disposition home or self-care (01) ==
LOC: HO.HMCH 09:04
PROVIDERS: PCP Internal Medicine; Visit Provider Internal Medicine
DX: Z00.00 Encounter for general adult medical examination without abnormal findings (principal); M50.90 Cervical disc disorder, unspecified, unspecified cervical region; M54.12 Radiculopathy, cervical region; F31.81 Bipolar II disorder; J45.20 Mild intermittent asthma, uncomplicated; J30.2 Other seasonal allergic rhinitis; J01.90 Acute sinusitis, unspecified; L71.9 Rosacea, unspecified; F90.2 Attention-deficit hyperactivity disorder, combined type; G47.00 Insomnia, unspecified; E66.3 Overweight

== ENCOUNTER 2025-01-24 09:03 | Outpatient (REF) | payer OTHER, SELFPAY ==
[2025-01-24 10:17] LABS: MANUAL DIFF FLAG NO
[2025-01-24 11:19] LABS: Basophils Absolute Auto 0.1 X10*3/uL (0.0-0.2); Basophils Percent Auto 0.6 % (0-2); Eosinophils Absolute Auto 0.2 X10*3/uL (0.0-0.4); Eosinophils Percent Auto 1.2 % (0-4); Hematocrit 37.8 % (37.0-47.0); Hemoglobin 12.5 g/dl (12.0-16.0); Imm Gran Abs Auto 0.06 X10*3/uL (0.00-0.03); Imm Gran Pct Auto 0.4 % (0.0-0.4); Lymphocytes Absolute Auto 2.2 X10*3/uL (1.2-4.9); Lymphocytes Percent Auto 16.1 % (20-40); Mean Corpuscular HGB Conc 33.1 g/dl (31.0-35.0); Mean Corpuscular Hemoglobin 31.8 pg (27.0-33.0); Mean Corpuscular Volume 96.2 fL (80.0-98.0); Mean Platelet Volume 10.3 fL (9.4-12.3); Monocytes Absolute Auto 0.9 X10*3/uL (0.1-1.2); Monocytes Percent Auto 6.5 % (2-11); Neutrophils Absolute Auto 10.1 x10*3/uL (2.0-8.3); Neutrophils Percent Auto 75.2 % (45-73); Platelet Count 330 X10*3/uL (160-400); Red Blood Count 3.93 X10*6/uL (4.20-5.50); Red Cell Distribution Width 12.5 % (11.0-16.0); White Blood Count 13.4 X10*3/uL (4.8-10.8)
[2025-01-24 12:20] LABS: Alanine Aminotransferase 15 U/L (0-31); Alkaline Phosphatase 47 U/L (39-117); Anion Gap 8 (12-20); Aspartate Amino Transferase 19 U/L (5-31); Bilirubin Total 0.5 mg/dL (0.0-1.0); Blood Urea Nitrogen 11 mg/dL (9-16); Carbon Dioxide 27 mmol/L (22-29); Chloride 107 mmol/L (96-108); Cholesterol 139 mg/dL (<200); Estimated Glomerular Filt Rate > 60; Glucose Fasting 87 mg/dL (60-99); HDL Cholesterol 51 mg/dL (>40); LDL Cholesterol Calculated 79 mg/dL (<100); Potassium 3.9 mmol/L (3.3-5.1); Sodium 138 mmol/L (135-145); TSH reflex Free T4 1.57 uIU/mL (0.32-4.0); Total Protein 6.8 g/dL (6.5-8.0); Triglycerides 45 mg/dL (<150); Vitamin D 25-OH Total 45.2 ng/mL (>30)
[2025-01-24 13:53] LABS: Appearance Urine Clear; Color Urine Yellow; Glucose Urine UA Negative (Negative); Leukocyte Esterase Urine Negative (Negative); Nitrite Urine Negative (Negative); PH 7.5 (5.0-9.0); UMIC TRIGGER UACC YES; Urine Blood Small (1+) (Negative); Urine Ketones Negative (Negative); Urine Protein Negative (Neg-Trace)
[2025-01-24 13:56] LABS: Bacteria Urine 1+ (None Seen); Hyaline Casts Urine 0-2 /LPF (0-2); RBC Urine >20 /HPF (0-2); Squamous Epithelial Cell Urine 0-2 /HPF (0-2); WBC Urine 0-5 /HPF (0-5)
== END 2025-01-24 09:04 | disposition home or self-care (01) ==
LOC: HO.LAB 09:03
PROVIDERS: PCP Internal Medicine; Visit Provider Internal Medicine
DX: Z00.00 Encounter for general adult medical examination without abnormal findings (principal); D64.9 Anemia, unspecified; E55.9 Vitamin D deficiency, unspecified; R30.0 Dysuria
CPT/HCPCS: 36415; 80053; 80061; 81001; 82306; 84443; 85025; 96127

== ENCOUNTER 2025-01-29 11:14 | Outpatient (AMB) | payer OTHER, SELFPAY ==
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
== END 2025-01-29 11:43 | disposition home or self-care (01) ==
LOC: HO.HOP 11:14
PROVIDERS: PCP Internal Medicine; Visit Provider Clinical Nurse Specialist Psychiatric/Mental Health
DX: F41.1 Generalized anxiety disorder (principal); F41.0 Panic disorder [episodic paroxysmal anxiety]; F43.20 Adjustment disorder, unspecified; Z63.4 Disappearance and death of family member; F31.81 Bipolar II disorder; F90.2 Attention-deficit hyperactivity disorder, combined type
CPT/HCPCS: 99214

== ENCOUNTER → 2025-01-29 11:14 | Outpatient (BNVA) | payer OTHER, SELFPAY | PROVIDERS: PCP Internal Medicine; Visit Provider Clinical Nurse Specialist Psychiatric/Mental Health ==

== ENCOUNTER 2025-02-12 06:22 | Outpatient (REF) | payer OTHER, SELFPAY ==
--- NOTE | ~2025-02-12 | FL_ITS ---
EXAMINATION: FL GUIDANCE ONLY HISTORY: M47.812 - Spondylosis without myelopathy or radiculopathy, cervical region COMPARISON: None available. TECHNIQUE: Fluoroscopy time: 35.8 seconds. Cumulative Dose: 2.8172 mGy. DAP: 1.2254 mGym2 Images: 12. FINDINGS: Images demonstrate multiple needles and contrast material in the neck bilaterally. FL/FL guidance in treatment room IMPRESSION: Fluoroscopy during procedure. Please see procedure report for additional information. Electronically signed by: Malvin Chase MD 02/12/2025 11:56 AM EDT
--- OUTSIDE RECORDS SUMMARY | 2025-02-12 06:25 | XMS_ITS | Clinical Summary ---
Author Organization [facility] Address [address] [place] [address] Care Team Providers Care Foreign Language Professor Name Role Phone Unknown, Primary Care Provider [...] age to complete this topic Care Teams Foreign Language Professor Relationship Specialty Start Date End Date Unknown, PCP - General 06/18/21
== END 2025-02-12 06:23 | disposition home or self-care (01) ==
LOC: CF 06:22
PROVIDERS: Visit Provider Anesthesiology
DX: M47.812 Spondylosis without myelopathy or radiculopathy, cervical region (principal)
CPT/HCPCS: 64490; 64491; J2003; J2795; J3301; Q9967

== ENCOUNTER 2025-02-12 10:57 | Outpatient (AMB) | payer OTHER, SELFPAY ==
[2025-02-12 11:07] VITALS: BP 114/62; PULSE 119; RESP 16; O2SAT 97
--- NOTE | 2025-02-12 11:07 | A.OFFVIS_ITS ---
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 Consumer Service Required: No Allergies corn Allergy (Severe, Verified 02/12/25 11:07) stomach pain lactose Allergy (Severe, Verified 02/12/25 11:07) upset stomach cyclobenzaprine [From Flexeril] Allergy (Mild, Verified 02/12/25 11:07) Stomach Upset Medication List - Last Reconciled 02/12/25 by Africa Henderson LPN albuterol sulfate 90 mcg/actuation 1 - 2 puffs PO Q6H PRN amoxicillin-pot clavulanate 875-125 mg 1 tab PO BID 7 days benzonatate 200 mg PO TID PRN benzoyl peroxide 5% (Epsolay) appl topical BEDTIME clonidine HCl 0.1 mg PO BID PRN 90 days dextroamphetamine-amphetamine 20 mg (Adderall) 20 mg PO BID fluticasone propionate 50 mcg/actuation 1 spray intranasal DAILY PRN 30 days lamotrigine 100 mg (1/2 x 200 mg) PO BID 90 days loratadine 10 mg PO DAILY montelukast 10 mg PO BEDTIME 90 days multivit with min-folic acid 120 mcg (Adult Multivitamin Gummies) 1 tab PO DAILY naltrexone 50 mg PO DAILY sertraline (Zoloft) 50 mg orally Take 1 tab BID with food; [facility] Medical History (Updated 01/29/25 @ 11:47 by Tasha Stroud APRN) Intermittent palpitations Overweight (BMI 25.0-29.9) Allergic rhinitis Asthma Seasonal allergies ADHD HPV in female Insomnia Depression Psoriasis Surgical History History of wisdom tooth extraction Family History Mother Lung cancer Cervical cancer Father Prostate cancer Paternal Grandmother Lung cancer Social History Housing: House Alcohol intake: current Alcohol intake frequency: a few times a week Patient Tobacco Use Status: Never used Tobacco e-Cigarette/Vaping Use: Never Used Second Hand Smoke Exposure: No service: No Current occupational status: employed 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 Sexual orientation: Bisexual Gender identity: Female Cognitive needs: No Hearing needs: No Vision needs: Yes (glasses) Female Reproductive History Menstrual Age of Menarche: 10 Physical Exam Vital Signs: Last Vital Signs Pulse 98 02/12/25 11:35 Resp 16 02/12/25 11:35 BP 112/78 02/12/25 11:35 Pulse Ox 100 02/12/25 11:35 Oxygen Delivery Method Room Air 02/12/25 11:35 Assessment & Plan Assessment & Plan (1) Spondylosis of cervical region without myelopathy or radiculopathy: Code(s): M47.812 - Spondylosis without myelopathy or radiculopathy, cervical region Category: Medical Plan Bilateral therapeutic cervical medial branch block C4-C5-C6. Informed consent was thoroughly explained to the patient. Risks and benefits were explained as risk of bleeding infection peripheral nerve damage spinal cord damage and headache. The patient was taken to the operating room and positioned prone on operating table. The posterior neck and upper back was prepped with ChloraPrep and draped with sterile self adhesive utility towels. C-arm was brought over the operating field and picture of the C4, C5, C6,vertebra were delineated on the screen. Bilateral lateral masses of this vertebras were chosen as target of the injection. The positioned of the waistline of each of the lateral mass was chosen at the endpoint of the needle advancement. After that projection of these points to the skin was injected with small amount of mixture of lidocaine 2% and ropivacaine 0.5% one-to-one. After that three 22 gauge 3-1/2 inch needles were driven to the point of interest in tunnel vision fashion until the tip of the needle gently contacted the bone. Injection of the contrast was performed delineating no intrathecal and no intravascular spread of the contrast. After that small amount of local anesthetic less than 1 cc ropivacaine 0.5% mixed with Kenalog was injected into each needle. Total dose of Kenalog was 80 mg equally divided between 6 injections. Upon completion of the procedure needles were removed, sterile Band-Aids were applied. Patient tolerated procedure well. Orders: Orders FL guidance in treatment room Today M47.812 - Spondylosis without myelopathy or radiculopathy, cervical region Coding Level of Care Code Procedure Only Diagnoses Spondylosis of cervical region without myelopathy or radiculopathy M47.812
[2025-02-12 11:35] VITALS: BP 112/78; PULSE 98; RESP 16; O2SAT 100
--- OUTSIDE RECORDS SUMMARY | 2025-02-12 13:20 | XMS_ITS | Clinical Summary ---
Author Organization [facility] Address [address] [place] [address] Care Team Providers Care Manager Division Name Role Phone Unknown, Primary Care Provider [...] age to complete this topic Care Teams Manager Division Relationship Specialty Start Date End Date Unknown, PCP - General 06/18/21
== END 2025-02-12 11:37 | disposition home or self-care (01) ==
LOC: HO.PMCPRC 10:57
PROVIDERS: PCP Internal Medicine; Visit Provider Anesthesiology
DX: M47.812 Spondylosis without myelopathy or radiculopathy, cervical region (principal)
CPT/HCPCS: 64490; 64491

== ENCOUNTER 2025-03-19 10:10 | Outpatient (AMB) | payer OTHER, SELFPAY ==
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
--- OUTSIDE RECORDS SUMMARY | 2025-03-19 11:11 | XMS_ITS | Clinical Summary ---
Author Organization [facility] Address [address] [place] [address] Care Team Providers Care Interior Design Consultant Name Role Phone Unknown, Primary Care Provider [...] age to complete this topic Care Teams Interior Design Consultant Relationship Specialty Start Date End Date Unknown, PCP - General 06/18/21
== END 2025-03-19 10:43 | disposition home or self-care (01) ==
LOC: HO.HOP 10:10
PROVIDERS: PCP Internal Medicine; Visit Provider Clinical Nurse Specialist Psychiatric/Mental Health
DX: F41.1 Generalized anxiety disorder (principal); F41.0 Panic disorder [episodic paroxysmal anxiety]; F31.81 Bipolar II disorder
CPT/HCPCS: 99214

== ENCOUNTER 2025-04-12 12:59 | Outpatient (AMB) | payer OTHER, SELFPAY ==
--- OUTSIDE RECORDS SUMMARY | 2025-04-12 13:01 | XMS_ITS | Clinical Summary ---
Author Organization [facility] Address [address] [place] [address] Care Team Providers Care Manufacturing Engineering Technologist Name Role Phone Unknown, Primary Care Provider [...] Screening (P ap Smear) 02/27/2009 Influenza Vaccine (Season Ended) 2025 Pneumococcal Vaccine Aged Out No long er eligible based on patient's age to complete this topic RSV Ped < 20 months Aged Out No longe r eligible based on patient's age to complete this topic Care Teams Manufacturing Engineering Technologist Relationship Specialty Start Date End Date Unknown, PCP - General 06/18/21
--- NOTE | 2025-04-12 13:30 | MHC.OFFWIV ---
Intake Vital Signs 04/12/25 13:31 Height 5 ft 3 in Weight 160 lb BMI 28.3 BP 104/70 Blood Pressure Location Lt brachial Position Sitting Respiration 15 Pulse 93 Pulse Source Pulse Oximeter Temp 97.9 F Temp Source Oral Pulse Oximetry (%) 99 Oxygen Delivery Method Room Air Intake Visit Reasons: EP ? contact dermatitis on neck area Patient Tobacco Use Status: Never used Tobacco Allergies corn Allergy (Severe, Verified 02/12/25 11:07) stomach pain lactose Allergy (Severe, Verified 02/12/25 11:07) upset stomach cyclobenzaprine [From Flexeril] Allergy (Mild, Verified 02/12/25 11:07) Stomach Upset HPI EP ? contact dermatitis on neck area HPI Details This is a 35-year-old female patient who presents to the walk-in clinic today with report of a rash on the back of her neck. This started following hiking with her dogs last Tuesday. She is unsure if she came into contact with any poison this plants. Has been trying a hydrocortisone cream without significant relief. The rash is also near her hairline, so she has not been utilizing it as much as it gets into her hair. Rash has been very itchy. [facility] Medical History Intermittent palpitations Overweight (BMI 25.0-29.9) Allergic rhinitis Asthma Seasonal allergies ADHD HPV in female Insomnia Depression Psoriasis Surgical History History of wisdom tooth extraction Family History Mother Lung cancer Cervical cancer Father Prostate cancer Paternal Grandmother Lung cancer Social History Housing: House Alcohol intake: current Alcohol intake frequency: a few times a week Patient Tobacco Use Status: Never used Tobacco e-Cigarette/Vaping Use: Never Used Second Hand Smoke Exposure: No service: No Current occupational status: employed 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 Sexual orientation: Bisexual Gender identity: Female Cognitive needs: No Hearing needs: No Vision needs: Yes (glasses) Female Reproductive History Menstrual Age of Menarche: 10 Review of Systems Const All systems reviewed & are unremarkable except as noted in HPI and below Physical Exam Vital Signs: BMI result Body Mass Index 28.3 Const General: cooperative, healthy appearing, comfortable and no acute distress HEENT Head: Yes normal to inspection Ears: hearing grossly normal bilaterally Neck Neck: Yes no lymphadenopathy Skin Other: Erythematous rash with small vesicles on posterior neck bilaterally. Consistent with contact derm. No surrounding erythema or warmth. Extrem General: Yes no clubbing, cyanosis or edema Psych Appearance: grossly normal Mental Status: mental status grossly normal Speech and movement: Normal speech and movement present Assessment & Plan Assessment & Plan (1) Contact dermatitis: Code(s): L25.9 - Unspecified contact dermatitis, unspecified cause Qualifiers: Contact dermatitis type: irritant Contact dermatitis trigger: non-food plants Qualified Code(s): L24.7 - Irritant contact dermatitis due to plants, except food Plan: Patient prefers p.o. prednisone to topical corticosteroid cream. Will start her on short course of prednisone. She has taken this before for various reasons and denies any prior side effects. We reviewed indications, use, possible side effects of medication. If she does not improve with treatment, or if rash worsens, she can return to the clinic for further evaluation. Patient verbalizes understanding and agrees to plan. Medications: New prednisone 40 mg (2 x 20 mg) PO DAILY 5 days 10 tabs 0RF L25.9 - Unspecified contact dermatitis, unspecified cause Coding Level of Care Code Est Pt Level 4 (57414) Diagnoses Irritant contact dermatitis due to plants, except food L24.7 Contact dermatitis type: irritant Contact dermatitis trigger: non-food plants
[2025-04-12 13:31] VITALS: BP 104/70; PULSE 93; RESP 15; TEMP 36.6; O2SAT 99; BMI 28.3
== END 2025-04-12 14:08 | disposition home or self-care (01) ==
PROVIDERS: PCP Internal Medicine; Visit Provider Nurse Practitioner Family
DX: L24.7 Irritant contact dermatitis due to plants, except food (principal)

== ENCOUNTER → 2025-04-12 12:59 | Outpatient (BNVA) | payer OTHER, SELFPAY | PROVIDERS: PCP Internal Medicine; Visit Provider Nurse Practitioner Family ==

== ENCOUNTER 2025-05-28 10:25 | Outpatient (AMB) | payer OTHER, SELFPAY ==
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
--- OUTSIDE RECORDS SUMMARY | 2025-05-28 11:33 | XMS_ITS | Clinical Summary ---
Author Organization [facility] Address [address] [place] [address] Care Team Providers Care Graduate Internship Name Role Phone Unknown, Primary Care Provider [...] (P ap Smear) 02/27/2009 Influenza Vaccine (#1) 2025 Pneumococcal Vaccine Aged Out No long er eligible based on patient's age to complete this topic RSV Ped < 20 months Aged Out No longe r eligible based on patient's age to complete this topic Care Teams Graduate Internship Relationship Specialty Start Date End Date Unknown, PCP - General 06/18/21
== END 2025-05-28 10:39 | disposition home or self-care (01) ==
LOC: HO.HOP 10:25
PROVIDERS: PCP Internal Medicine; Visit Provider Clinical Nurse Specialist Psychiatric/Mental Health
DX: F41.1 Generalized anxiety disorder (principal); F41.0 Panic disorder [episodic paroxysmal anxiety]; F31.81 Bipolar II disorder
CPT/HCPCS: 99214

== ENCOUNTER 2025-08-01 09:14 | Outpatient (AMB) | payer OTHER, SELFPAY ==
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
--- OUTSIDE RECORDS SUMMARY | 2025-08-01 10:07 | XMS_ITS | Clinical Summary ---
Author Organization [facility] Address [address] [place] [address] Care Team Providers Care Entry Level Buyer Name Role Phone Unknown, Primary Care Provider [...] age to complete this topic Care Teams Entry Level Buyer Relationship Specialty Start Date End Date Unknown, PCP - General 06/18/21
== END 2025-08-01 09:41 | disposition home or self-care (01) ==
LOC: HO.HOP 09:14
PROVIDERS: PCP Internal Medicine; Visit Provider Clinical Nurse Specialist Psychiatric/Mental Health
DX: F31.81 Bipolar II disorder (principal); F41.1 Generalized anxiety disorder; F41.0 Panic disorder [episodic paroxysmal anxiety]
CPT/HCPCS: 99214

== ENCOUNTER 2025-09-04 14:31 | Outpatient (AMB) | payer OTHER, SELFPAY ==
[2025-09-04 14:34] VITALS: BP 133/80; PULSE 114; RESP 16; O2SAT 99; BMI 30.6
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
--- OUTSIDE RECORDS SUMMARY | 2025-09-04 18:52 | XMS_ITS | Clinical Summary ---
Author Organization [facility] Address [address] [place] [address] Care Team Providers Care Continuous Improvement Coordinator Name Role Phone Unknown, Primary Care Provider [...] age to complete this topic Care Teams Continuous Improvement Coordinator Relationship Specialty Start Date End Date Unknown, PCP - General 06/18/21
== END 2025-09-04 15:08 | disposition home or self-care (01) ==
PROVIDERS: PCP Internal Medicine; Visit Provider Anesthesiology
DX: M47.812 Spondylosis without myelopathy or radiculopathy, cervical region (principal); M48.02 Spinal stenosis, cervical region; G89.4 Chronic pain syndrome; M54.9 Dorsalgia, unspecified
CPT/HCPCS: 99214

== ENCOUNTER 2025-09-12 09:43 | Outpatient (AMB) | payer OTHER, SELFPAY ==
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
--- OUTSIDE RECORDS SUMMARY | 2025-09-12 10:57 | XMS_ITS | Clinical Summary ---
Author Organization [facility] Address [address] [place] [address] Care Team Providers Care Biology Adjunct Instructor Name Role Phone Unknown, Primary Care Provider [...] age to complete this topic Care Teams Biology Adjunct Instructor Relationship Specialty Start Date End Date Unknown, PCP - General 06/18/21
== END 2025-09-12 09:45 | disposition home or self-care (01) ==
LOC: HO.HOP 09:43
PROVIDERS: PCP Internal Medicine; Visit Provider Clinical Nurse Specialist Psychiatric/Mental Health
DX: F31.81 Bipolar II disorder (principal); F41.1 Generalized anxiety disorder; F41.0 Panic disorder [episodic paroxysmal anxiety]
CPT/HCPCS: 90833; 99213

== ENCOUNTER 2025-11-04 10:40 | Outpatient (AMB) | payer OTHER, SELFPAY ==
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
--- OUTSIDE RECORDS SUMMARY | 2025-11-04 12:08 | XMS_ITS | Clinical Summary ---
Author Organization [facility] Prior to 04/06/25 Address [address] [place] [address] Care Team Providers Care Biology Specimen Technician Name Role Phone Unknown, Primary Care Provider [...] to complete this topic Care Teams Biology Specimen Technician Relationship Specialty Start Date End Date Unknown, PCP - General 06/18/21
== END 2025-11-04 10:54 | disposition home or self-care (01) ==
LOC: HO.HOP 10:40
PROVIDERS: PCP Internal Medicine; Visit Provider Clinical Nurse Specialist Psychiatric/Mental Health
DX: F31.81 Bipolar II disorder (principal); F41.1 Generalized anxiety disorder; F41.0 Panic disorder [episodic paroxysmal anxiety]
CPT/HCPCS: 99214